=== PATIENT | male | born 1960 | race African-American/Black ===

== ENCOUNTER 2024-12-18 08:58 | Emergency (ER) | payer OTHER, SELFPAY ==
--- NOTE | ~2024-12-18 | CT_ITS ---
EXAMINATION: CTA NECK WITH CONTRAST (STROKE) CTA BRAIN WITH CONTRAST (STROKE) CLINICAL INFORMATION: Dizziness. Leanning to the left side. COMPARISON: None available. TECHNIQUE: CTA of the head and neck was performed in the axial plane from the mediastinum to the skull vertex using 70 mL Omnipaque 350 intravenous contrast. Additional reformatted multiplanar images including maximum intensity projection MIP images are generated on the CT workstation. This CT examination was performed using dose optimization techniques as appropriate, variously including the following: *Automated exposure control *Adjustment of mA and/or kV according to patient size (this includes techniques or standardized protocols for targeted exams where dose is matched to indication/reason for exam; i.e. extremities or head) *Use of iterative reconstruction technique. DLP: 1522 mGy centimeter. FINDINGS: The degree of stenosis determined by criteria similar to NASCET. Brain: Focal encephalomalacia left frontal foote radiata white matter into the left external capsule. The focal old lacunar infarcts, basal ganglia and extracapsular mostly in the left cerebral hemisphere. No acute intracranial hemorrhage, mass effect, midline shift, hydrocephalus or herniation. Bilateral multifocal patchy deep periventricular white matter hypodensity. Posterior cranial fossa contents demonstrated no acute hemorrhage or gross mass effect. Vascular calcifications V4 segments of the vertebral arteries and the cavernous supracavernous segments both ICAs. Tympanic cavities and mastoid cells are aerated. No air-fluid levels in the included paranasal sinuses. Craniocervical junction demonstrates normal position of the cerebellar tonsils. Chest CTA: Calcified plaques in the aortic arch wall and extending into the main branches without focal stenosis or intimal flap. Normal diameter of the aortic arch included in the exam. Neck CTA: Right CCA: Normal patency. No focal stenosis. No intimal flap. Right ICA: Irregular mixed plaque at the proximal segment/carotid bulb representing 80-90% stenosis. No intimal flap. Left CCA: Normal patency. Calcified plaques. No focal stenosis. No intimal flap. Left ICA: Mixed plaques in the proximal segment/carotid bulb representing 70% stenosis. No intimal flap. Normal patency. V1/V2 segments: Normal patency. No focal stenosis. No intimal flap. Codominant vertebral arteries. The origin is directly from the subclavian arteries. Brain CTA: Anterior cerebral circulation: ICAs: Calcified plaques. Normal patency. No focal stenosis. No abrupt cut off. MCA's: Normal patency. No focal stenosis. No abrupt cut off. Bifurcation/trifurcation demonstrated no vascular irregularity. ACAs: Normal patency. No focal stenosis. No abrupt cut off. Anterior communicating artery is small and patent. Ophthalmic arteries are patent without irregularity at the origin. Left posterior communicating artery is robust and patent. Right posterior communicating artery is small and vaguely identified. Posterior cerebral circulation: V3/V4 segments: Calcified plaques. Normal patency. No focal stenosis or intimal flap. Right posterior inferior cerebellar arteries patent. Left posterior inferior cerebellar artery is small and probably with a common trunk with the anterior inferior cerebellar artery. Basilar artery is patent with calcified plaques. No intimal flap. Basilar artery tip is normal. Superior cerebellar arteries are patent. cash on delivery clerk: Small hypoplastic/atrophic left P1 segment. No focal stenosis. No abrupt cut off. Ancillary findings: Main cerebral venous sinuses are patent. Multilevel cervical spondylosis. Bilateral apical lung scarring. CT/CT angio head neck IMPRESSION: Irregular mixed plaques right ICA at representing 80-90% stenosis. Mixed plaques left ICA representing 70% stenosis. No dissection. No main cerebral artery occlusion or embolus. No acute intracranial hemorrhage. Codominant vertebral arteries. Atherosclerosis disease, intracranial. This critical test result is communicated to: Emergency physician court assistant, Lewis Cevallos on December 18, 2024 at 11:23 AM. Electronically signed by: Frandy Byers MD 12/18/2024 11:39 AM EDT
[2024-12-18 09:11] VITALS: BP 125/79; BP 160/90; PULSE 54; PULSE 60; RESP 16; TEMP 36.6; O2SAT 94; O2SAT 95; BMI 30.2
--- NOTE | 2024-12-18 09:31 | ECG_ITS ---
Test Reason : RESOLVED DIZZINESS AND LIGHTHEADEDNESS Blood Pressure : */* mmHG Vent. Rate : 55 BPM Atrial Rate : 55 BPM P-R Int : 110 ms QRS Dur : 84 ms QT Int : 480 ms P-R-T Axes : 44 24 18 degrees QTcB Int : 459 ms Sinus bradycardia with short GA Nonspecific T wave abnormality Abnormal ECG No previous ECGs available Referred By: Lewis Cevallos Electronically Signed By: Modesto Atkinson
--- NOTE | 2024-12-18 09:33 | ED_ITS ---
HPI - General Adult General Chief complaint: Dizziness Stated complaint: lightheaded and weak Time Seen by Provider: 12/18/24 09:15 Source: patient Mode of arrival: ambulatory Limitations: no limitations History of Present Illness ED Provider: Lewis Cevallos HPI narrative: Male history of stroke and hypertension, COPD, and HTn woke up this morning with lightheadedness and dizziness leading to the left which resolved on its own by 07:30. Patient states he woke up between 4:00am-4:30am. Patient denied having any slurred speech, facial droop, or paralysis of extremities. Patient denied having any loss of vision. Patient denied having any ringing in the ears. Patient is presently asymptomatic and feels fine Related Data Allergies Allergy/AdvReac Type Severity Reaction Status Date / Time No Known Allergies Allergy Verified 12/18/24 09:16 Review of Systems 2 Review of Systems: resolved lightheadedness and dizziness Yes all other systems are reviewed and are negative PMFSH Social History Social History Advance Directives: No Advance Directives Information Provided: Yes Physical Exam ED Vital Signs: Vital Signs - 24 hr 12/18/24 09:11 12/18/24 11:45 12/18/24 11:46 Temperature 97.8 F Pulse Rate 54 59 57 Respiratory Rate 16 Blood Pressure 125/79 160/87 H 175/98 H Pulse Oximetry 94 Oxygen Delivery Method Room Air 12/18/24 11:47 12/18/24 12:04 Temperature Pulse Rate 56 56 Respiratory Rate 18 Blood Pressure 185/94 H 185/94 H Pulse Oximetry 95 Oxygen Delivery Method Room Air BMI result Body Mass Index 30.2 Const General: cooperative, healthy appearing, comfortable, no acute distress, well developed, alert, awake and Physically active Orientation/consciousness: patient oriented x3 HENMT Head: Yes normal to inspection, Yes No palpable skull fracture present and Yes normocephalic Ears: hearing grossly normal bilaterally, external ears normal, TM's normal bilaterally, TM normal on the right, TM normal on the left, EAC's normal, mastoids normal and no periauricular adenopathy Eyes General: appearance normal, both eyes and all related structures Neck Neck: Yes normal visual inspection, Yes full ROM, Yes no lymphadenopathy, Yes no meningeal signs, Yes trachea midline, Yes supple, No anterior neck swelling and No tender Chest Chest palpation & inspection: normal inspection of the chest and normal palpation of entire chest wall Resp Effort & Inspection: normal respiratory effort and able to speak in complete sentences Auscultation: clear to auscultation bilaterally Cardio Jugular venous distension: no JVD Heart sounds: S1 normal heart sound present and S2 normal heart sound present GI Inspection: Yes normal to inspection Palpation (GI): Soft to palpation, not firm, nontender, no guarding and not rigid General: Yes no CVA tenderness Back/Spine/Pelvis Back: no CVA tenderness and No back tenderness Skin General skin exam: no rashes or lesions noted, elasticity normal and turgor normal Neuro Other: Negative slurred speech. Negative paralysis of extremities. [id number] and rapid hand movement intact. Negative Romberg. All equal strength 5+ of extremities. Negative facial droop General: patient oriented x3, gait normal, tone normal, moves all extremities, Normal light touch and pain sensation, no meningeal signs, no focal motor deficits, CN's II-XI intact bilaterally and normal sensation to monofilament Extrem General: Yes normal to inspection, Yes full ROM and Yes capillary refill normal Psych Appearance: grossly normal, well kempt and not disheveled NIH Stroke Scale Internal: Initial- Upon Arrival Level of Consciousness: Alert Level of Consciousness Questions: Answers both questions correctly Level of Consciousness Commands: Performs both tasks correctly Best Gaze: Normal Visual: No visual loss Facial Palsy: Normal Motor Arm (Right): No drift Motor Arm (Left): No drift Motor Leg (Right): No drift Motor Leg (Left): No drift Limb Ataxia: Absent Sensory: Normal Best Language: No aphasia Dysarthia: Normal Extinction and Inattention: No abnormality Score: 0 Medications Administered Discontinued Medications Generic Name Dose Route Start Last Admin Trade Name Freq PRN Reason Stop Dose Admin Sodium Chloride 1,000 mls @ 999 mls/hr 12/18/24 09:31 12/18/24 11:42 Ns IV 12/18/24 10:31 Infused .Q1H1M STA Infusion Iohexol 100 ml 12/18/24 10:29 12/18/24 10:29 Iohexol 350 Mg/Ml 100 Ml Infus..Btl IV 12/18/24 10:30 70 ml ONCE ONE Administration Medical Decision Making Medical Decision Making MDM Narrative: 64-year-old male presents to the ED while waking up to dizziness lightheadedness and leaning to the left. States symptoms resolved. Patient patient presently asymptomatic. NIH score is 0. EKG labs orthostatics fluids ordered. Patient denies any URI symptoms or any other symptoms to indicate an infection. Due to history of stroke and patient stated woke up to dizziness and leaning to the left was sent for CTA of head and neck. Patient of the window and symptoms resolved no need to call stroke. 1:22pm: Negative neuro deficits. Patient had normal gait. Not suspecting posterior cerebellar stroke. Orthostatics negative. Two troponins negative. CT head and neck shows bilateral internal carotid artery stenosis between 70- 90%. Patient presently asymptomatic. Case was discussed with Dr. Riggins of vascular surgery he is well informed of patient's history physical exam, and diagnostic results. He states patient could be discharged and follow up with him outpatient. He states make sure patient is on aspirin and statin. I reviewed patient's medication list from [facility] which show he is already on aspirin and a statin. Patient informed to be compliant with these meds. Patient informed to follow up with the vascular surgeon or vascular surgeon at the [facility]. Patient given copy of lab results. Patient explained worrisome signs and informed to return to the ED immediately. Presently not suspecting stroke [place] sepsis, meningitis, bacteremia, or any other concerning symptoms. Differential Diagnosis Differential Diagnoses: The differential diagnosis associated with the presentation includes (Stroke, vertigo) Admission/Observation Consideration of admission/observation: Escalation of care including admission/observation considered Consult Healthcare Provider Management of the patient was discussed with: Advertising Assistant Manager (Vaishnavi. Vascular Surgeon) Lab Data MDM Lab Attestation statement: I reviewed the patient's lab results. 12/18/24 09:51 12/18/24 09:51 Labs: Lab Results 12/18/24 12/18/24 Range/Units 09:51 12:02 WBC 5.6 (4.8-10.8) X10*3/uL RBC 4.90 (4.60-5.80) X10*6/uL Hgb 14.7 (14.0-18.0) g/dl Hct 43.0 (42.0-52.0) % MCV 87.8 (80.0-98.0) fL MCH 30.0 (27.0-33.0) pg MCHC 34.2 (31.0-36.0) g/dl RDW 15.6 (11.0-16.0) % Plt Count 153 L (160-400) X10*3/uL MPV 12.2 (9.4-12.4) fL Immature Gran % (Auto) 0.4 (0.0-0.4) % Neut % (Auto) 48.4 (45-73) % Lymph % (Auto) 37.5 (20-40) % [place] % (Auto) 11.4 H (2-11) % Eos % (Auto) 1.2 (0-4) % Baso % (Auto) 1.1 (0-2) % Lymph # (Auto) 2.1 (1.2-4.9) X10*3/uL [place] # (Auto) 0.6 (0.1-1.2) X10*3/uL Eos # (Auto) 0.1 (0.0-0.4) X10*3/uL Baso # (Auto) 0.1 (0.0-0.2) X10*3/uL Abs Immat Gran (auto) 0.02 (0.00-0.03) X10*3/uL Absolute Neuts (auto) 2.7 (2.0-8.3) x10*3/uL Absolute Nucleated RBC 0.000 (0.0-0.012) X10*3/uL Nucleated RBC % (auto) 0.0 (0.0-0.2) /100WBC PT 10.8 L (10.9-12.4) SEC INR 0.9 (0.9-1.1) APTT 32.8 (26.0-36.8) SEC Sodium 140 (135-145) mmol/L Potassium 3.6 (3.3-5.1) mmol/L Chloride 103 (96-108) mmol/L Carbon Dioxide 31 H (22-29) mmol/L Anion Gap 10 L (12-20) BUN 15 (9-16) mg/dL Creatinine 1.26 (0.5-1.4) mg/dL Estim Creat Clear Calc 67.4 Estimated GFR 58 Random Glucose 86 (60-115) mg/dL Calcium 9.2 (8.4-10.2) mg/dL Magnesium 1.9 (1.6-2.6) mg/dL Total Bilirubin 0.8 (0.0-1.0) mg/dL AST 39 H (5-37) U/L ALT 27 (0-40) U/L Alkaline Phosphatase 64 (39-117) U/L Troponin I High Sens 4.4 5.5 (<3.5-35.0) ng/L Total Protein 7.2 (6.5-8.0) g/dL Albumin 4.0 (3.5-5.0) g/dL Independent Interpretation I performed an independent interpretation of an: CT Scan Radiology Impression Discussion of test interpretation with radiology: I have reviewed the radiologist's reading. Independent Historian Clinical information obtained from an independent historian. History obtained from or confirmed by: Other (patient) Discharge Plan Discharge Clinical Impression: Dizziness, Carotid artery disease Patient Disposition: Home, Self-Care Instructions: Lightheadedness (ED), Dizziness (ED) Additional Instructions: Recommend follow-up with your primary care provider and our vascular surgeon. Your blood work and EKG came back reassuring. Ed CTA head and neck shows bilateral internal carotid artery stenosis that will need further outpatient evaluation. This can contribute to his symptoms of dizziness. Return to the ED immediately for any dizziness, slurred speech, facial droop, paralysis of extremities, nausea, vomiting, loss of vision, fever, chills, or any other concerning symptoms. Recommend being compliant with your aspirin and statin medication. EXAMINATION: CTA NECK WITH CONTRAST (STROKE) CTA BRAIN WITH CONTRAST (STROKE) CLINICAL INFORMATION: Dizziness. Leanning to the left side. COMPARISON: None available. TECHNIQUE: CTA of the head and neck was performed in the axial plane from the mediastinum to the skull vertex using 70 mL Omnipaque 350 intravenous contrast. Additional reformatted multiplanar images including maximum intensity projection MIP images are generated on the CT workstation. This CT examination was performed using dose optimization techniques as appropriate, variously including the following: *Automated exposure control *Adjustment of mA and/or kV according to patient size (this includes techniques or standardized protocols for targeted exams where dose is matched to indication/reason for exam; i.e. extremities or head) *Use of iterative reconstruction technique. DLP: 1522 mGy centimeter. FINDINGS: The degree of stenosis determined by criteria similar to NASCET. Brain: Focal encephalomalacia left frontal foote radiata white matter into the left external capsule. The focal old lacunar infarcts, basal ganglia and extracapsular mostly in the left cerebral hemisphere. No acute intracranial hemorrhage, mass effect, midline shift, hydrocephalus or herniation. Bilateral multifocal patchy deep periventricular white matter hypodensity. Posterior cranial fossa contents demonstrated no acute hemorrhage or gross mass effect. Vascular calcifications V4 segments of the vertebral arteries and the cavernous supracavernous segments both ICAs. Tympanic cavities and mastoid cells are aerated. No air-fluid levels in the included paranasal sinuses. Craniocervical junction demonstrates normal position of the cerebellar tonsils. Chest CTA: Calcified plaques in the aortic arch wall and extending into the main branches without focal stenosis or intimal flap. Normal diameter of the aortic arch included in the exam. Neck CTA: Right CCA: Normal patency. No focal stenosis. No intimal flap. Right ICA: Irregular mixed plaque at the proximal segment/carotid bulb representing 80-90% stenosis. No intimal flap. Left CCA: Normal patency. Calcified plaques. No focal stenosis. No intimal flap. Left ICA: Mixed plaques in the proximal segment/carotid bulb representing 70% stenosis. No intimal flap. Normal patency. V1/V2 segments: Normal patency. No focal stenosis. No intimal flap. Codominant vertebral arteries. The origin is directly from the subclavian arteries. Brain CTA: Anterior cerebral circulation: ICAs: Calcified plaques. Normal patency. No focal stenosis. No abrupt cut off. MCA's: Normal patency. No focal stenosis. No abrupt cut off. Bifurcation/trifurcation demonstrated no vascular irregularity. ACAs: Normal patency. No focal stenosis. No abrupt cut off. Anterior communicating artery is small and patent. Ophthalmic arteries are patent without irregularity at the origin. Left posterior communicating artery is robust and patent. Right posterior communicating artery is small and vaguely identified. Posterior cerebral circulation: V3/V4 segments: Calcified plaques. Normal patency. No focal stenosis or intimal flap. Right posterior inferior cerebellar arteries patent. Left posterior inferior cerebellar artery is small and probably with a common trunk with the anterior inferior cerebellar artery. Basilar artery is patent with calcified plaques. No intimal flap. Basilar artery tip is normal. Superior cerebellar arteries are patent. deicer kit assembler: Small hypoplastic/atrophic left P1 segment. No focal stenosis. No abrupt cut off. Ancillary findings: Main cerebral venous sinuses are patent. Multilevel cervical spondylosis. Bilateral apical lung scarring. CT/CT angio head neck IMPRESSION: Irregular mixed plaques right ICA at representing 80-90% stenosis. Mixed plaques left ICA representing 70% stenosis. No dissection. No main cerebral artery occlusion or embolus. No acute intracranial hemorrhage. Codominant vertebral arteries. Atherosclerosis disease, intracranial. This critical test result is communicated to: Emergency physician certified ophthalmic surgical assistant, Lewis Cevallos on December 18, 2024 at 11:23 AM. Electronically signed by: Frandy Byers MD 12/18/2024 11:39 AM EDT RP Referrals: Maximiliano Riggins MD [Physician, Vascular Surgery] - 2 days Referral Note: Bilateral internal carotid artery stenosis. Resolved dizziness Clinical Impression: Dizziness; Carotid artery disease Stand Alone Forms: Work/School Release Interventions: ED Discharge Assessment Last Done: 12/18/24 13:44 Discharge Date/Time: 12/18/24 13:45 Print Language: Czech
[2024-12-18 09:58] LABS: MANUAL DIFF FLAG NO
[2024-12-18 09:59] LABS: Hematocrit 43.0 % (42.0-52.0); Hemoglobin 14.7 g/dl (14.0-18.0); Imm Gran Abs Auto 0.02 X10*3/uL (0.00-0.03); Imm Gran Pct Auto 0.4 % (0.0-0.4); Lymphocytes Absolute Auto 2.1 X10*3/uL (1.2-4.9); Mean Corpuscular HGB Conc 34.2 g/dl (31.0-36.0); Mean Corpuscular Hemoglobin 30.0 pg (27.0-33.0); Mean Corpuscular Volume 87.8 fL (80.0-98.0); NRBC Abs Auto 0.000 X10*3/uL (0.0-0.012); NRBC Pct Auto 0.0 /100WBC (0.0-0.2); Platelet Count 153 X10*3/uL (160-400); Red Blood Count 4.90 X10*6/uL (4.60-5.80); White Blood Count 5.6 X10*3/uL (4.8-10.8)
[2024-12-18 10:06] LABS: INTERNATIONAL NORM RATIO 0.9 (0.9-1.1); Prothrombin Time 10.8 SEC (10.9-12.4)
[2024-12-18 10:09] LABS: Partial Thromboplastin Time 32.8 SEC (26.0-36.8)
[2024-12-18 10:19] LABS: Alanine Aminotransferase 27 U/L (0-40); Albumin Level 4.0 g/dL (3.5-5.0); Alkaline Phosphatase 64 U/L (39-117); Anion Gap 10 (12-20); Aspartate Amino Transferase 39 U/L (5-37); Blood Urea Nitrogen 15 mg/dL (9-16); Calcium 9.2 mg/dL (8.4-10.2); Carbon Dioxide 31 mmol/L (22-29); Chloride 103 mmol/L (96-108); Creatinine Clr Calc Pharmacy 67.4; Estimated Glomerular Filt Rate 58; Potassium 3.6 mmol/L (3.3-5.1); Sodium 140 mmol/L (135-145); Total Protein 7.2 g/dL (6.5-8.0); Troponin-I High Sensitivity 4.4 ng/L (<3.5-35.0)
[2024-12-18 10:26] LABS: Magnesium 1.9 mg/dL (1.6-2.6)
[2024-12-18] MEDS: iohexoL 350 MG/ML 100 ML INFUS..BTL IV (10:29)
[2024-12-18 11:45] VITALS: BP 160/87; PULSE 59
[2024-12-18 11:46] VITALS: BP 175/98; PULSE 57
[2024-12-18 11:47] VITALS: BP 185/94; PULSE 56
[2024-12-18 12:04] VITALS: BP 185/94; PULSE 56; RESP 18; O2SAT 95
[2024-12-18 12:34] LABS: Troponin-I High Sensitivity 5.5 ng/L (<3.5-35.0)
[2024-12-18 13:44] VITALS: BP 185/94; PULSE 56; RESP 18; TEMP 36.6; O2SAT 95
== END 2024-12-18 13:45 | disposition home or self-care (01) ==
PROVIDERS: Physician Assistant; Emergency Provider Emergency Medicine
DX: R42 Dizziness and giddiness (principal); I77.9 Disorder of arteries and arterioles, unspecified; R29.700 NIHSS score 0; F17.210 Nicotine dependence, cigarettes, uncomplicated
CPT/HCPCS: 36415; 70496; 70498; 80053; 83735; 84484; 85025; 85610; 85730; 93005; 96360; 99284; Q9967

== ENCOUNTER → 2024-12-18 09:31 | Outpatient (BNV) | payer OTHER, SELFPAY | PROVIDERS: Emergency Provider Emergency Medicine; Visit Provider Internal Medicine Cardiovascular Disease | DX: R00.1 Bradycardia, unspecified (principal) | CPT/HCPCS: 93010 ==

== ENCOUNTER → 2024-12-18 09:43 | Outpatient (BNV) | payer OTHER, SELFPAY | PROVIDERS: Emergency Provider Emergency Medicine; Visit Provider Radiology Diagnostic Radiology | DX: R42 Dizziness and giddiness (principal) | CPT/HCPCS: 70496; 70498 ==

== ENCOUNTER 2024-12-24 10:03 | Outpatient (AMB) | payer OTHER, SELFPAY ==
[2024-12-24 10:06] VITALS: BP 128/84; BMI 29.5
--- NOTE | 2024-12-24 10:06 | A.OFFVIS_ITS ---
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 Pt states he still gets lightheaded and dizziness at times where the room is spinning. 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 He experienced dizziness and lightheadedness, leading to an emergency room visit on 12/18, without slurred speech or limb weakness. A CT scan identified significant carotid artery stenosis, more severe on the right side. The patient has a history of a stroke in 2021, initially presenting with balance issues, and delayed medical attention for three days. He was treated at outside hospital in [facility]. 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 The patient smokes one pack of cigarettes daily, denies diabetes, and is on a cholesterol-lowering medication and baby aspirin. He now presents for vascular evaluation [facility] Medical History (Updated 12/24/24 @ 12:34 by Maximiliano Riggins MD) Stroke COPD (chronic obstructive pulmonary disease) Hypertension Social History (Updated 12/24/24 @ 10:09 by ZORAIDA Bolivar) Patient Tobacco Use Status: Current everyday Tobacco user Cigarettes Per Day: 20 Review of Systems Const All systems reviewed & are unremarkable except as noted in HPI and below Reports no additional complaints ENT Reports Normal hearing present Card Denies chest pain, Denies chest pain at rest, Denies chest pain with activity and Denies pedal edema Resp Denies cough GI Denies abdominal pain Musc Denies abnormal gait, Denies muscle cramps and Denies radiating pain into limb Skin/Breast Denies skin ulcer and Denies wounds Neuro Reports Normal hearing present and Denies abnormal gait Psych Reports no additional complaints Physical Exam Vital Signs: Last Vital Signs BP 120/90 H 12/24/24 10:13 BMI result Body Mass Index 29.5 Const General: cooperative, healthy appearing and comfortable Orientation/consciousness: oriented to person, oriented to place and oriented to time HEENT Head: Yes normal to inspection Neck Neck: Yes normal visual inspection Carotids: no bruits Chest Chest palpation & inspection: normal inspection of the chest Resp Effort & Inspection: normal respiratory effort and able to speak in complete sentences Auscultation: clear to auscultation bilaterally, no crackles, no rales, no rhonchi and no wheezes Cardio Rate: regular rate Rhythm: regular rhythm Heart sounds: S1 normal heart sound present and S2 normal heart sound present Bruits: no carotid bruits Peripheral pulses: Peripheral pulses 2+ throughout GI Inspection: Yes normal to inspection Skin Wounds: no wounds Hair: normal Neuro General: oriented to person, oriented to place and oriented to time Cranial nerves: Yes CN's II-XII intact bilaterally and Yes Normal hearing present Cognition (Neuro): normal cognition Motor exam (neuro): 5/5 motor strength present throughout Extrem Other: venous exam: No significant superficial varicosities or spider telangiectasias, minimal edema General: No clubbing, No cyanosis and No edema Psych Appearance: grossly normal Mental Status: mental status grossly normal Speech and movement: Normal speech and movement present Results Reviewed Results Reviewed: CT angiogram dated 12/18/2024 demonstrates right-sided carotid stenosis of 80-90% left-sided carotid stenosis of 70%. Written report and images were reviewed. Assessment & Plan Assessment & Plan (1) Bilateral carotid artery stenosis: Code(s): I65.23 - Occlusion and stenosis of bilateral carotid arteries Category: Medical Plan: In short patient has high-grade right carotid stenosis. We have reviewed signs and symptoms of a stroke. We also discussed risk factor modification inclusive a healthy diet low in cholesterol. The patient will require right carotid endarterectomy. Risks benefits complications of the surgery included but not limited to bleeding infection stroke and were discussed in detail with the patient. He agreed and would like to move forward. He will require cardiac risk stratification prior to surgery. Thank you for allowing us to participate in this patient's care. If there are any questions or concerns please do not hesitate to contact us. Plan Patient was informed and verbally consented to the use of an ambient scribe for clinic note documentation during this visit. Patient Instructions: - Attend the cardiology consult to ensure heart health before surgery. - Prepare for surgery scheduled in early February. - Avoid heavy lifting and driving for two weeks after surgery. - Monitor for any signs of stroke and seek immediate medical attention if symptoms occur. Coding Level of Care Code New Pt Level 4 (94123) Complex EM visit Add On G2211 Diagnoses Bilateral carotid artery stenosis I65.23
[2024-12-24 10:13] VITALS: BP 120/90
== END 2024-12-24 10:47 | disposition home or self-care (01) ==
LOC: HO.HVS 10:03
PROVIDERS: Referring Provider Surgery Vascular Surgery; Visit Provider Surgery Vascular Surgery
DX: I65.23 Occlusion and stenosis of bilateral carotid arteries (principal)
CPT/HCPCS: 99204; G2211

== ENCOUNTER → 2024-12-24 10:03 | Outpatient (BNVA) | payer OTHER, SELFPAY | PROVIDERS: Visit Provider Surgery Vascular Surgery | DX: I65.23 Occlusion and stenosis of bilateral carotid arteries (principal) | CPT/HCPCS: 99202 ==

== ENCOUNTER 2025-01-05 17:41 | Emergency (ER) | payer OTHER, SELFPAY ==
[2025-01-05 17:41] VITALS: PULSE 82; O2SAT 97; BMI 29.5
--- NOTE | 2025-01-05 18:32 | ECG_ITS ---
Test Reason : OVER 50 Blood Pressure : */* mmHG Vent. Rate : 54 BPM Atrial Rate : 54 BPM P-R Int : 122 ms QRS Dur : 88 ms QT Int : 474 ms P-R-T Axes : 56 20 24 degrees QTcB Int : 449 ms Sinus bradycardia Otherwise normal ECG When compared with ECG of 18-Dec-2024 09:49, ST elevation now present in Anterior leads Nonspecific T wave abnormality no longer evident in Lateral leads Referred By: Tae Shoemaker Electronically Signed By: TIANNA WAYNE MD
--- NOTE | 2025-01-05 18:58 | ED.MEDCLEAR ---
HPI - Medical Clearance General Chief complaint: Medical Clearance Stated complaint: Section 12 Time Seen by Provider: 01/05/25 17:58 Source: patient, RN notes reviewed and old records reviewed Mode of arrival: EMS Limitations: no limitations History of Present Illness ED Provider: Navid OCONNOR Narrative: 64-year-old male past medical history significant for hypertension, COPD, hyperlipidemia, previous TBI presents for evaluation of suicidal ideation. Patient had a mental health evaluation at the [facility] today and he admitted that he was having depressive and suicidal thoughts with plan to overdose on his medications. The patient also reports that he drank alcohol and snorted cocaine last night in an attempt to harm himself because ?I heard that is bad when you have artery stenosis. ? The patient was seen at this facility on 12/18/2024 for acute onset of dizziness. He was found to have up to 90% stenosis of the right internal carotid artery. The patient follow up with Dr. Riggins and has plans for outpatient carotid endarterectomy Apparently the patient is supposed to see Cardiology, Dr. Porter at this facility for clearance for surgery and the endarterectomy tomorrow and will not be able to make that appointment due to being placed on a section 12. The patient has no active medical complaints. Denies any dizziness and states he has not had any dizziness since his visit here on 12/18/2024. Denies any chest pain pain He has occasional headaches due to his previous TBI but denies any active headaches today. Related Information Home Medications ?Medication ?Instructions ?Recorded ?Confirmed albuterol 90 mcg/actuation aerosol mcg inhalation 01/06/25 inhaler amlodipine 5 mg tablet 5 mg PO DAILY 01/06/25 01/06/25 aspirin 81 mg tablet 81 mg PO DAILY 01/06/25 01/06/25 atorvastatin 20 mg tablet 20 mg PO BEDTIME 01/06/25 01/06/25 carboxymethylcellulose sodium 1 % 1 drp ophthalmic (eye) BID 01/06/25 01/06/25 eye liquid gel drops cholecalciferol (vitamin D3) 50 50 mcg PO DAILY 01/06/25 01/06/25 mcg (2,000 unit) capsule cyanocobalamin (vitamin B-12) 250 250 mcg PO DAILY 01/06/25 01/06/25 mcg tablet doxepin 6 mg tablet 6 mg PO BEDTIME PRN Insomnia 01/06/25 01/06/25 hydroxyzine HCl 25 mg tablet 25 mg PO BID PRN Anxiety 01/06/25 01/06/25 ibuprofen 800 mg tablet 800 mg PO Q8H PRN Headache 01/06/25 01/06/25 lanolin alcohols-mineral See Rx Instructions .Route 01/06/25 01/06/25 oil-w.petrolatum-ceresin topical .COMPLEX PRN Dry Skin cream (Eucerin topical cream) lisinopril 10 1 tab PO DAILY 01/06/25 01/06/25 mg-hydrochlorothiazide 12.5 mg tablet multivitamin 1 tab PO DAILY 01/06/25 01/06/25 mupirocin 2 % topical ointment 1 appl topical BID 01/06/25 01/06/25 sertraline 200 mg capsule 200 mg PO DAILY 01/06/25 01/06/25 thiamine HCl (vitamin B1) 100 mg 100 mg PO DAILY 01/06/25 01/06/25 tablet tiotropium 2.5 mcg-olodaterol 2.5 2 puff inhalation DAILY 01/06/25 01/06/25 mcg/actuation mist for inhalation Allergies Allergy/AdvReac Type Severity Reaction Status Date / Time No Known Allergies Allergy Verified 01/05/25 17:50 Review of Systems Constitutional: Constitutional: Denies body ache(s), Denies chills, Denies fever(s) and Denies headache(s) Eyes: Eyes: Denies blurry vision ENT: Denies vertigo, Denies dizziness and Denies headache(s) Cardiovascular: Cardiovascular: Denies chest pain and Denies dyspnea on exertion Respiratory: Respiratory: Denies cough and Denies dyspnea on exertion Gastrointestinal: Gastrointestinal: Denies abdominal pain, Denies nausea and Denies vomiting Musculoskeletal: Musculoskeletal: Denies back pain Integumentary/Breasts: Skin/Breast: Denies rash Neurologic: Denies vertigo, Denies dizziness and Denies headache(s) Psychiatric: Psychiatric: Denies anxiety, Reports depression, Denies homicidal ideation and Reports suicidal ideation [facility] Past Medical History Medical History (Updated 01/06/25 @ 12:14 by Quinn Blue DO) Stroke COPD (chronic obstructive pulmonary disease) Hypertension Social History Social History (Updated 12/24/24 @ 10:09 by Jennifer L Swan, RMA) Unable to assess alcohol history related to: Refusing to respond Patient Tobacco Use Status: Current everyday Tobacco user Cigarettes Per Day: 20 Smoked in Last 30 Days: No Use of substances other than those prescribed or required for medical reasons: Refusing to respond Substance Use Frequency Other:: all the drugs Advance Directives: No Advance Directives Information Provided: Yes Do you have a plan to hurt others: No Plan Physical Exam Vital Signs: Vital Signs: Last Vital Signs Temp 97.4 F 01/06/25 10:39 Pulse 72 01/06/25 10:39 Resp 14 01/06/25 10:39 BP 140/99 H 01/06/25 10:39 Pulse Ox 97 01/06/25 10:39 O2 Del Method Room Air 01/06/25 10:39 BMI result Body Mass Index 29.5 Const: General: healthy appearing, comfortable, no acute distress, alert and awake Nutritional Appearance: well nourished Orientation/consciousness: patient oriented x3 HEENT: Head: Yes normocephalic and Yes atraumatic Eyes: Eyelids: Yes eyelids normal Conjunctivae: conjunctivae normal Sclerae: sclerae normal Corneas: corneas normal Pupils: Equal, round and reactive pupils present EOM: EOMs intact bilaterally Neck: Neck: Yes full ROM Resp: Effort & Inspection: normal respiratory effort, able to speak in complete sentences and not labored Cardio: Rate: regular rate Rhythm: regular rhythm GI: Inspection: No distended Palpation (GI): Soft to palpation, not firm, nontender, no guarding and not rigid Skin: General skin exam: elasticity normal Neuro: General: patient oriented x3 Cranial nerves: Yes Equal, round and reactive pupils present and Yes Bilaterally intact EOM present Cognition (Neuro): normal cognition Course Reevaluation(s) Reevaluation #1: Patient will be discharged to [facility] Time: 12:11 Date: 01/06/25 Provider: Quinn Blue DO Physician observation ended. Time: 12:11 Medical Decision Making Medical Decision Making MDM Narrative: 64-year-old male with past medical history as above presents for evaluation of depression with suicidal ideation. [facility] to suicidal ideation. The patient reports he tried to harm himself last night by drinking alcohol and using cocaine. The patient has no headaches, no dizziness, no chest pain, no somatic complaints at all today. He was due to have a cardiology appointment tomorrow for clearance to have the endarterectomy. Unfortunately the patient admits to using cocaine and will likely need detox prior to undergoing any surgery. I did message the patient's surgeon, Dr. Riggins who reports it is okay for the patient to go to a mental health facility and address his depression and suicidal ideation prior to his endarterectomy. I also sent a message to the patient's fiscal accountant and informed him that the patient will be in the department and will likely misses appointment tomorrow. Plan for basic medical labs, the patient can be medically cleared for a psych facility admission without seeing Cardiology to be cleared for an endarterectomy Differential Diagnosis Differential Diagnoses: The differential diagnosis associated with the presentation includes Depression Anxiety Suicidal ideation Substance abuse Admission/Observation Consideration of admission/observation: Escalation of care including admission/observation considered Lab Data 01/05/25 20:25 01/05/25 20:25 Labs: Lab Results 01/05/25 01/05/25 01/06/25 Range/Units 20:24 20:25 05:35 WBC 7.4 (4.8-10.8) X10*3/uL RBC 4.70 (4.60-5.80) X10*6/uL Hgb 14.3 (14.0-18.0) g/dl Hct 41.7 L (42.0-52.0) % MCV 88.7 (80.0-98.0) fL MCH 30.4 (27.0-33.0) pg MCHC 34.3 (31.0-36.0) g/dl RDW 15.8 (11.0-16.0) % Plt Count 153 L (160-400) X10*3/uL MPV 12.3 (9.4-12.4) fL Immature Gran % (Auto) 0.1 (0.0-0.4) % Neut % (Auto) 48.4 (45-73) % Lymph % (Auto) 38.8 (20-40) % [place] % (Auto) 10.4 (2-11) % Eos % (Auto) 1.5 (0-4) % Baso % (Auto) 0.8 (0-2) % Lymph # (Auto) 2.9 (1.2-4.9) X10*3/uL [place] # (Auto) 0.8 (0.1-1.2) X10*3/uL Eos # (Auto) 0.1 (0.0-0.4) X10*3/uL Baso # (Auto) 0.1 (0.0-0.2) X10*3/uL Abs Immat Gran (auto) 0.01 (0.00-0.03) X10*3/uL Absolute Neuts (auto) 3.6 (2.0-8.3) x10*3/uL Absolute Nucleated RBC 0.000 (0.0-0.012) X10*3/uL Nucleated RBC % (auto) 0.0 (0.0-0.2) /100WBC Sodium 142 (135-145) mmol/L Potassium 3.9 (3.3-5.1) mmol/L Chloride 103 (96-108) mmol/L Carbon Dioxide 32 H (22-29) mmol/L Anion Gap 11 L (12-20) BUN 14 (9-16) mg/dL Creatinine 1.06 (0.5-1.4) mg/dL Estim Creat Clear Calc 79.4 Estimated GFR > 60 Random Glucose 80 (60-115) mg/dL Calcium 8.8 (8.4-10.2) mg/dL Total Bilirubin 1.0 (0.0-1.0) mg/dL AST 34 (5-37) U/L ALT 22 (0-40) U/L Alkaline Phosphatase 53 (39-117) U/L Total Protein 7.2 (6.5-8.0) g/dL Albumin 4.0 (3.5-5.0) g/dL Urine Color Yellow Urine Appearance Clear Urine pH 7.0 (5.0-9.0) Ur Specific [place] 1.020 (1.005-1.025) Urine Protein Negative (Neg-Trace) mg/dL Urine Glucose (UA) Negative (Negative) mg/dL Urine Ketones Negative (Negative) mg/dL Urine Blood Negative (Negative) Urine Nitrite Negative (Negative) Ur Leukocyte Esterase Trace H (Negative) Urine RBC 0-2 (0-2) /HPF Urine WBC 0-5 (0-5) /HPF Ur Squamous Epith Cells 0-2 (0-2) /HPF Urine Bacteria None Seen (None Seen) Hyaline Casts 0-2 (0-2) /LPF Salicylates < 5.0 L (15-30) mg/dL Urine Opiates Screen Not Detected (Not Detect) Ur Buprenorphine Scrn Not Detected (Not Detect) ng/mL Ur Oxycodone Screen Not Detected (Not Detect) ng/mL Urine Methadone Screen Not Detected (Not Detect) ng/mL Urine Fentanyl Screen Not Detected (Not Detect) Acetaminophen < 3 (<30) mcg/mL Ur Barbiturates Screen Not Detected (Not Detect) Ur Phencyclidine Scrn Not Detected (Not Detect) Ur Amphetamines Screen Not Detected (Not Detect) U Benzodiazepines Scrn Not Detected (Not Detect) Urine Cocaine Screen POSITIVE H (Not Detect) U Marijuana (THC) Screen Not Detected (Not Detect) Ethyl Alcohol < 10 mg/dL Discharge Plan Discharge Clinical Impression: Depression, Cocaine abuse Patient Disposition: Xfer Psychiatric Hosp Prescriptions: No Action thiamine HCl (vitamin B1) 100 mg Tablet 100 mg PO DAILY doxepin 6 mg Tablet 6 mg PO BEDTIME PRN (Reason: Insomnia) tiotropium-olodaterol 2.5-2.5 mcg/actuation Mist 2 puff INHALATION DAILY sertraline 200 mg Capsule 200 mg PO DAILY hydroxyzine HCl 25 mg Tablet 25 mg PO BID PRN (Reason: Anxiety) mupirocin 2 % Ointment 1 appl TOPICAL BID Eucerin Cream See Rx Instructions .ROUTE .COMPLEX PRN (Reason: Dry Skin ) Rx Instructions: Apply moderate amount topically TID PRN for Dry skin multivitamin Tablet 1 tab PO DAILY atorvastatin 20 mg Tablet 20 mg PO BEDTIME cyanocobalamin (vitamin B-12) 250 mcg Tablet 250 mcg PO DAILY amlodipine 5 mg Tablet 5 mg PO DAILY aspirin 81 mg Tablet 81 mg PO DAILY albuterol 90 mcg/actuation Aerosol INHALATION lisinopril-hydrochlorothiazide 10-12.5 mg Tablet 1 tab PO DAILY carboxymethylcellulose sodium 1 % Drops, Liquid Gel 1 drp OPHTHALMIC (EYE) BID cholecalciferol (vitamin D3) 50 mcg (2,000 unit) Capsule 50 mcg PO DAILY ibuprofen 800 mg Tablet 800 mg PO Q8H PRN (Reason: Headache) Print Language: Serbian
[2025-01-05 20:29] LABS: MANUAL DIFF FLAG NO
[2025-01-05 20:30] LABS: Hematocrit 41.7 % (42.0-52.0); Hemoglobin 14.3 g/dl (14.0-18.0); Imm Gran Abs Auto 0.01 X10*3/uL (0.00-0.03); Imm Gran Pct Auto 0.1 % (0.0-0.4); Lymphocytes Absolute Auto 2.9 X10*3/uL (1.2-4.9); Mean Corpuscular HGB Conc 34.3 g/dl (31.0-36.0); Mean Corpuscular Hemoglobin 30.4 pg (27.0-33.0); Mean Corpuscular Volume 88.7 fL (80.0-98.0); NRBC Abs Auto 0.000 X10*3/uL (0.0-0.012); NRBC Pct Auto 0.0 /100WBC (0.0-0.2); Platelet Count 153 X10*3/uL (160-400); Red Blood Count 4.70 X10*6/uL (4.60-5.80); White Blood Count 7.4 X10*3/uL (4.8-10.8)
[2025-01-05 20:44] LABS: Acetaminophen LAB < 3 mcg/mL (<30); Salicylate < 5.0 mg/dL (15-30)
[2025-01-05 20:44] LABS: Alanine Aminotransferase 22 U/L (0-40); Albumin Level 4.0 g/dL (3.5-5.0); Alkaline Phosphatase 53 U/L (39-117); Anion Gap 11 (12-20); Aspartate Amino Transferase 34 U/L (5-37); Blood Urea Nitrogen 14 mg/dL (9-16); Calcium 8.8 mg/dL (8.4-10.2); Carbon Dioxide 32 mmol/L (22-29); Chloride 103 mmol/L (96-108); Creatinine Clr Calc Pharmacy 79.4; Estimated Glomerular Filt Rate > 60; Potassium 3.9 mmol/L (3.3-5.1); Sodium 142 mmol/L (135-145); Total Protein 7.2 g/dL (6.5-8.0)
--- NOTE | 2025-01-06 00:09 | PC.NURSE ---
Assumed care of pt at 2315. Report rec'd from RODDY Means.
[2025-01-06 00:15] VITALS: BP 155/88; PULSE 61; RESP 18; TEMP 37; O2SAT 96
[2025-01-06 05:44] LABS: Appearance Urine Clear; Glucose Urine UA Negative (Negative); PH 7.0 (5.0-9.0); Specific Gravity - Urine 1.020 (1.005-1.025); UMIC TRIGGER UA YES
--- NOTE | 2025-01-06 05:44 | PC.NURSE ---
PT presented to ED at 1741. Unsure as to when PT was officially medically cleared, and when he was changed over. tw assumed care at 2315 and pt was already changed over. patient belongings not completed. TW found labelled belonging in [place] port. Current shift Secuirty guards reports supervisor policy change clerks not being done during their shift. Completed Patient belonging based on what was found in bag.
[2025-01-06 05:53] LABS: Cannabinoid Screen Urine Not Detected (Not Detect)
--- NOTE | 2025-01-06 06:01 | PC.NURSE ---
Assumed care of pt at approximately 0530, pt escorted to br by SABRINA Walters and able to give urine sample. Pt back to room. Received report from Rama PEREYRA. Belongings list being completed by Rama, not done when pt arrived by previous RN or tech. At this time Rama found belongings in [place]. Wallet with $85( 4-$20, 1-$5 bill) and cell phone with clothes and shoes. [facility].
--- NOTE | 2025-01-06 07:08 | PC.NURSE ---
Assumed care of patient at 0645, patient appears to be in no apparent distress at this time, sleeping, respirations even and unlabored. Continue plan of care for IPLOC
--- NOTE | 2025-01-06 08:20 | MHC.CARE ---
Dee, [facility] worker [facility] called to inquire about Pt. She was informed admissions would be looking for [facility] Pt at this time. Her phone number is [phone] if there are any questions.
[2025-01-06 10:39] VITALS: BP 140/99; PULSE 72; RESP 14; TEMP 36.3; O2SAT 97
--- NOTE | 2025-01-06 15:17 | PHA.MEDREC ---
Addendum entered by Shayy Krishnamurthy priti 01/06/25 15:28: reviewed Original Note: Pharmacy Consult ? Medication Reconciliation Pharmacy reviewed med rec done by nursing. Utilized med list from [facility].
[2025-01-06 15:20] VITALS: BP 140/99; PULSE 72; RESP 14; TEMP 36.3; O2SAT 97
== END 2025-01-06 15:21 ==
PROVIDERS: Physician Assistant; Emergency Provider Internal Medicine
DX: F32.A Depression, unspecified (principal); F14.10 Cocaine abuse, uncomplicated; R45.851 Suicidal ideations; I65.21 Occlusion and stenosis of right carotid artery; Z87.820 Personal history of traumatic brain injury; Z79.82 Long term (current) use of aspirin; Z79.899 Other long term (current) drug therapy
CPT/HCPCS: 36415; 80053; 80143; 80179; 80307; 81001; 85025; 93005; 99285; S9485

== ENCOUNTER → 2025-01-05 18:32 | Outpatient (BNV) | payer OTHER, SELFPAY | PROVIDERS: Emergency Provider Internal Medicine; Visit Provider Internal Medicine Cardiovascular Disease | DX: R00.1 Bradycardia, unspecified (principal) | CPT/HCPCS: 93010 ==

== ENCOUNTER 2025-01-27 12:35 | Outpatient (AMB) | payer OTHER, SELFPAY ==
[2025-01-27 13:18] VITALS: BP 148/60; PULSE 69; BMI 29.6
--- NOTE | 2025-01-27 13:18 | MHC.OFFVIS ---
Vital Signs 01/27/25 13:18 Height 5 ft 9 in Weight 200 lb 9.93 oz BMI 29.6 BP 148/60 H Blood Pressure Location Lt brachial Position Sitting Pulse 69 Pulse Source Pulse Oximeter Intake Visit Reasons: Preop/ Vaishnavi/ endarterectomy Allergies No Known Allergies Allergy (Verified 01/05/25 17:50) Medication List - Last Reconciled 01/27/25 by Michael Porter MD albuterol sulfate 90 mcg/actuation 1 inh inhalation TID PRN amlodipine 5 mg PO DAILY aspirin 81 mg PO DAILY atorvastatin 20 mg PO BEDTIME carboxymethylcellulose sodium 1% 1 drp ophthalmic (eye) BID cholecalciferol (vitamin D3) 50 mcg PO DAILY cyanocobalamin (vitamin B-12) 250 mcg PO DAILY doxepin 6 mg PO BEDTIME PRN hydroxyzine HCl 25 mg PO BID PRN ibuprofen 800 mg PO Q8H PRN lanolin puzguwq-ee-g.pet-ceres (Eucerin topical cream) 1 appl topical TID PRN multivitamin 1 tab PO DAILY mupirocin 2% 1 appl topical BID sertraline 200 mg PO DAILY thiamine HCl (vitamin B1) 100 mg PO DAILY tiotropium-olodaterol 2.5-2.5 mcg/actuation 2 puffs inhalation DAILY HPI Comments Details: Bhaskar is here for consultation regarding preoperative risk stratification for carotid endarterectomy. Per vascular note, he had an ER visit for dizziness. In that context, it seems that he had a CAT scan showing significant carotid stenosis, more so on the right side. Otherwise, he has had a stroke in 2021, treated at an outside hospital. Otherwise, smoker, has hypertension and dyslipidemia. Recent ER visit for suicidal ideation and at that time, he was also cocaine positive. He denies any cardiac issues in the past like coronary disease or myocardial infarction or cardiomyopathy. Within limits of his activity, does not have any clear-cut symptoms like angina. [facility] Medical History (Updated 01/27/25 @ 13:38 by Michael Porter MD) Stroke COPD (chronic obstructive pulmonary disease) Hypertension Family History (Updated 01/27/25 @ 13:22 by Taryn Robertson) Mother No problems noted. Father No problems noted. Social History (Updated 01/27/25 @ 13:22 by Taryn Robertson) Unable to assess alcohol history related to: Refusing to respond Alcohol intake: never Patient Tobacco Use Status: Current everyday Tobacco user Cigarettes Per Day: 20 Review of Systems Const Denies weakness ENT Denies dizziness Card Denies chest pain, Denies chest pain with activity, Denies syncope, Denies rapid heart rate, Denies pedal edema, Denies edema, Denies leg edema, Denies lightheadedness, Denies palpitations, Denies dyspnea, Denies dyspnea on exertion and Denies orthopnea Resp Denies cough, Denies dyspnea and Denies dyspnea on exertion GI Denies hematochezia and Denies change in stool character Musc Denies abnormal gait, Denies muscle cramps, Denies muscle weakness, Denies numbness, Denies radiating pain into limb and Denies tingling Neuro Denies abnormal gait, Denies dizziness, Denies syncope, Denies numbness, Denies tingling and Denies weakness Endo Denies palpitations Physical Exam Vital Signs: Last Vital Signs Pulse 69 01/27/25 13:18 BP 148/60 H 01/27/25 13:18 BMI result Body Mass Index 29.6 Const General: comfortable and no acute distress Orientation/consciousness: patient oriented x3 HEENT Other: Unremarkable Head: Yes normal to inspection Neck Neck: Yes normal visual inspection Chest Chest palpation & inspection: normal inspection of the chest Resp Auscultation: clear to auscultation bilaterally Cardio Palpation: normal PMI Heart sounds: S1 normal heart sound present, S2 normal heart sound present, no gallops, no murmurs and no rubs GI Palpation (GI): Soft to palpation Back/Spine/Pelvis Other: unremarkable Skin General skin exam: no rashes or lesions noted Neuro General: patient oriented x3 Extrem General: Yes normal to inspection Psych Mental Status: mental status grossly normal Assessment & Plan Assessment & Plan (1) Preoperative cardiovascular examination: Code(s): Z01.810 - Encounter for preprocedural cardiovascular examination Category: Medical (2) Bilateral carotid artery stenosis: Code(s): I65.23 - Occlusion and stenosis of bilateral carotid arteries Category: Medical (3) Cocaine abuse: Code(s): F14.10 - Cocaine abuse, uncomplicated Category: Medical (4) Hypertension: Code(s): I10 - Essential (primary) hypertension Category: Medical (5) Hyperlipidemia, unspecified: Code(s): E78.5 - Hyperlipidemia, unspecified Category: Medical Plan In the recent EKG, sinus cardiac 54/Min; no clear ischemic changes; normal ME and corrected QT. in the one prior to that, nonspecific ST-T changes. Available high sensitivity troponins are unremarkable. Neck CTA shows right internal carotid artery 80-90% stenosis. Left internal carotid artery 70% stenosis. Intracranial atherosclerotic disease. Overall, multiple risk factors, carotid stenosis, requiring endarterectomy. Counseled about cocaine and he denies any further use in advised to abstain. He also had a recent ER visit for suicidal ideation but he now states he is mentally more stable. We will obtain an echocardiogram and exercise stress perfusion imaging study. Addendum to be made after review of the above. Orders: Orders CA stress test Today I65.23 - Occlusion and stenosis of bilateral carotid arteries, Z01.810 - Encounter for preprocedural cardiovascular examination CA echo transthoracic complete Today I65.23 - Occlusion and stenosis of bilateral carotid arteries, Z01.810 - Encounter for preprocedural cardiovascular examination NM cardiolite stress test Today I65.23 - Occlusion and stenosis of bilateral carotid arteries, Z01.810 - Encounter for preprocedural cardiovascular examination Coding Level of Care Code New Pt Level 4 (33711) Complex EM visit Add On G2211 Diagnoses Preoperative cardiovascular examination Z01.810 Bilateral carotid artery stenosis I65.23 Cocaine abuse F14.10 Hypertension I10 Hyperlipidemia, unspecified E78.5
== END 2025-01-27 13:34 | disposition home or self-care (01) ==
PROVIDERS: Visit Provider Internal Medicine
DX: Z01.810 Encounter for preprocedural cardiovascular examination (principal); I65.23 Occlusion and stenosis of bilateral carotid arteries; F14.10 Cocaine abuse, uncomplicated; I10 Essential (primary) hypertension; E78.5 Hyperlipidemia, unspecified
CPT/HCPCS: 99204; G2211

== ENCOUNTER → 2025-01-27 12:35 | Outpatient (BNVA) | payer OTHER, SELFPAY | PROVIDERS: Visit Provider Internal Medicine | DX: Z01.810 Encounter for preprocedural cardiovascular examination (principal); I65.23 Occlusion and stenosis of bilateral carotid arteries; F14.10 Cocaine abuse, uncomplicated; I10 Essential (primary) hypertension; E78.5 Hyperlipidemia, unspecified | CPT/HCPCS: 99202 ==

== ENCOUNTER → 2025-02-02 12:47 | Outpatient (REF) | payer OTHER, SELFPAY ==
--- NOTE | 2025-02-02 12:54 | CA_ITS ---
Transthoracic Echocardiogram Patient (Last, First, Middle): Bhaskar Herron Lee Gender: Male Date of : 1960 Age: 65 Procedure Date: 02/02/2025 Procedure Type: Transthoracic Echocardiogram Location: OP Height: 175.26 cm Weight: 90.72 kg BSA: 2.07 m2 Heart Rate: bpm BP: 148 / 60 mmHg Batter Depositor: NIDIA Referring MD: Michael Porter MD Symptoms: Z01.810 - Encounter for preprocedural cardiovascular examination Study Quality: Fair ECG Rhythm: Sinus Conclusions: - The left ventricular systolic function is normal. The calculated ejection fraction is 60% by biplane method. - The basal inferior and basal inferoseptal segments are akinetic. - No obvious valvular pathology seen on this study. Findings Left Ventricle Normal left ventricular cavity size. There is mildly increased left ventricular wall thickness. The left ventricular systolic function is normal. The calculated ejection fraction is 60% by biplane method. There is no evidence of regional wall motion abnormalities. Diastolic function is normal for age. Wall Motion Rest Echo Findings The basal inferior and basal inferoseptal segments are akinetic. Right Ventricle Normal right ventricular cavity size and systolic function. Atria Both atria are normal in size. Aortic Valve There is a normal trileaflet aortic valve. There is no aortic valve stenosis. There is no aortic valve regurgitation. Mitral Valve The mitral valve appears normal. There is no mitral valve regurgitation. There is no mitral valve stenosis. Pulmonic Valve The pulmonic valve is likely normal. Tricuspid Valve There is trace tricuspid valve regurgitation. There is no evidence of pulmonary hypertension. Great Vessels The asc aorta and aortic arch are normal in size. Small plaque is seen in the sino tubular ridge. Venous The inferior vena cava is normal in size and collapses greater than 50% with inspiration. Pericardium/Pleural There is no evidence of pericardial effusion. Prior Study Comparison No prior study available for comparison. Recommendations, Care & Conclusions No obvious valvular pathology seen on this study. Measurements 2D Linear Measurements IVSd: 1.18 0.6-0.9/0.6-1.0 cm LVIDd: 5.11 3.9-5.3/4.2-5.9 cm LVIDd Index: 2.47 2.4-3.2/2.2-3.1 cm/m2 LVIDs: 3.31 2.0-3.6 cm LVPWd: 1.03 0.7-1.1 cm LA Diam: 4.00 2.7-3.8/3.0-4.0 cm LAIDs Index: 1.93 1.5-2.3 cm/m2 LV Mass: 269.14 67-162/88-224 g LV Mass Index: 130.02 43-95/49-115 g/m2 LVOT Diam: 2.30 3.0+(-)1.3 cm 2D Systolic Function EF 4C: 52.80 >55% EF 2C: 62.30 >55% EF BiP: 59.70 >55% Mitral Valve MV Pk E: 0.75 MV PK A: 0.82 MV Decel Time: 151.00 E/A: 0.90 E'Lateral: 6.74 E'Medial: 7.18 E/E' Med: 10.50 E/E' Lat: 11.10 PHT: 44.00 MVA PHT: 5.00 Decel Jerauld: 4.98 Aortic Valve AoV Pk Owen: 1.29 AoV Mn Owen: 0.87 AoV VTI: 0.30 AoV Pk Grad: 7.00 Aov Mn Grad: 4.00 TRAVIS Cont.VTI: 2.10 LVOT LVOT Pk Owen: 0.77 LVOT Mn Owen: 0.48 LVOT VTI: 0.15 LVOT Pk Grad: 2.00 LVOT Mn Grad: 1.00 LVOT Diam: 2.30 LVOT Area: 4.15 Diastolic Function MV Pk E: 0.75 MV Pk A: 0.82 E/A: 0.90 E'Medial: 7.18 E/E' Med: 10.50 E' Laterial: 6.74 E/E' Lat: 11.10 Right Ventricle TAPSE (mm): 22.80 TVS' Owen: 13.50 Tricuspid Valve TR Pk Owen: 2.46 TR Pk Grad: 24.00 RA Press: 3.00 RVSP: 27.00 Great Vessels Aorta Sinus of Valsalva: 3.79 2.0-3.5 cm Ao Asc: 3.50 2.1-3.4 cm Ao Arch: 3.20 Updated in Other Vendor System with Status of Final Michael Porter MD electronically signed on 02/03/2025 3:30:01 PM with status of Final
== END ==
LOC: HO.CARD 12:47
PROVIDERS: Visit Provider Internal Medicine
DX: Z01.810 Encounter for preprocedural cardiovascular examination (principal); I65.23 Occlusion and stenosis of bilateral carotid arteries
CPT/HCPCS: 93306

== ENCOUNTER → 2025-02-02 12:54 | Outpatient (BNV) | payer OTHER, SELFPAY | PROVIDERS: Visit Provider Internal Medicine | DX: I51.89 Other ill-defined heart diseases (principal) | CPT/HCPCS: 93306 ==

== ENCOUNTER → 2025-02-04 08:39 | Outpatient (REF) | payer OTHER, SELFPAY ==
--- NOTE | ~2025-02-04 | NM_ITS ---
EXERCISE MYOCARDIAL PERFUSION STUDY INDICATION: Preoperative cardiovascular evaluation TECHNIQUE: The patient was brought in for an exercise perfusion study on 02/04/2025. Patient performed exercise as per Jayson protocol and was injected 30 mCi of sestamibi once target heart rate was achieved. Images were obtained using the SPECT gamma camera interlaced with the gating device. Images were obtained in supine position. Resting perfusion study was performed on 02/05/2025. Patient was administered 30 mCi of sestamibi intravenously at rest. Images were then obtained in supine position. Total DLP 71 mGy-cm. Images were processed with the software and compared side to side in short axis, horizontal long axis and vertical long axis views. FINDINGS: Raw aquisition reviewed. The stress perfusion study showed decreased tracer uptake along the inferior wall. There is some improvement with CT attenuation correction and hence could have components of diaphragmatic attenuation artifact. The gated study shows diminished LV systolic function with calculated LVEF of 38%. LV cavity is normal in size. The gated study shows diminished contractility in the basal to mid inferior wall Resting study shows diminished contractility in the inferior wall, slightly improved compared to stress acquisition. There is improvement with CT attenuation correction suggestive of diaphragmatic attenuation artifact. Gating at rest reveals reduced contractility in the inferior wall with LVEF of 36%. The findings are consistent with mixed perfusion defect in the inferior wall with reversible and fixed components. NM/NM cardiolite stress test IMPRESSION: 1. Myocardial perfusion imaging study shows ischemia/infarct pattern in the inferior wall. 2. Gated LVEF is 38% during stress and 36% with rest. Correlate with echocardiogram. 3. Transient ischemic dilatation not present. EKG component of the test reported separately. Electronically signed by: Michael Porter MD 02/07/2025 12:26 PM EDT
--- NOTE | 2025-02-04 08:43 | CA_ITS ---
Acquisition Time: 2025-02-04 08:58:59 Total Exercise Time: 00:06:10 Test Indications: Pre-Op Evaluation CAROTID STENOSIS Medications: SEE H&P Protocol: MARY GRACE Max HR: 141 BPM 90% of Pred: 156 BPM Max BP: 162/90 mmHG Max Work Load: 7.0 METS Exercise stress test with exercise 6 mins 10 secs of Mary Grace Protocol, achieving 91% MPHR, without any rports of chest pain or SOB, without any arrythmias, with normotensive response to exercise. With baseline T wave inversions, that got more prominent with exercise. In recovery, pt continued to feel well. Nuclear images pending. Test reviewed with Dr. Porter. Referred By: Michael Porter Electronically Signed By: Chris Dee
== END ==
LOC: HO.CARD 08:39
PROVIDERS: Referring Provider Internal Medicine; Visit Provider Internal Medicine
DX: Z01.810 Encounter for preprocedural cardiovascular examination (principal); I65.23 Occlusion and stenosis of bilateral carotid arteries
CPT/HCPCS: 78452; 93017; A9500; J0280; J2785

== ENCOUNTER → 2025-02-04 08:43 | Outpatient (BNV) | payer OTHER, SELFPAY | DX: I25.5 Ischemic cardiomyopathy (principal) | CPT/HCPCS: 78452 ==

== ENCOUNTER → 2025-02-15 07:30 | Outpatient (BNV) | payer OTHER, SELFPAY | PROVIDERS: Admitting Provider Surgery Vascular Surgery; Visit Provider Surgery Vascular Surgery | DX: I10 Essential (primary) hypertension (principal); I65.23 Occlusion and stenosis of bilateral carotid arteries; Z48.812 Encounter for surgical aftercare following surgery on the circulatory system | CPT/HCPCS: 99024 ==

== ENCOUNTER 2025-02-15 10:47 | Inpatient (IN) | payer OTHER, SELFPAY ==
[2025-02-09 12:04] VITALS: BP 116/77; PULSE 73; RESP 16; O2SAT 99; BMI 29.5
--- NOTE | 2025-02-09 12:32 | HO.ANESPROP2 ---
Documented by User: Lisa Jones NP 02/10/25 14:37 HPI - Anesthesia Eval Consult details Narrative: 65yo M for Right Carotid Endarterectomy, 02/15/25 R ICA 80-90% stenosis L ICA 70% stenosis Cardiac optimized. Preop risk stratify with [facility]. No previous cardiology follow. Cardiac studies reviewed. Echocardiogram with LVEF of 60%. Basal inferior/inferoseptal akinesis. No significant valvular findings. In the stress test, he was able to exercise for 6 minutes and 10 seconds, reached 7 METS and reached target heart rate. No chest pain. Baseline T inversions that got more prominent with exercise. Perfusion imaging showed inferior wall ischemia/infarct pattern. Overall, stress test findings could be related to atherosclerotic coronary disease +/-cocaine induced prior infarction/agata-infarct ischemia. Clinically, he has got no symptoms like angina. May proceed with planned carotid surgery. Intermediate cardiac risk. No recent illness No CP/SOB with walking Previous hx CVA 2021 - no deficits TBI - occasional headaches COPD: albuterol ~ 1 weekly STACIE with CPAP QHS Cocaine abuse: None since December. Verbalized understanding of Utox on DOS and risk of cancellation if positive 12/2024 [facility] ED with transfer to behavioral health inpt for suicidal ideation PMFSH Active Problems Active Problems: All Active Problems Hyperlipidemia, unspecified (Acute) Preoperative cardiovascular examination (Acute) Cocaine abuse (Acute) Bilateral carotid artery stenosis (Acute) Hypertension (Acute) Past Medical History Medical History STACIE on CPAP PTSD (post-traumatic stress disorder) TBI (traumatic brain injury) (~1987) HLD (hyperlipidemia) Stroke (~2021) COPD (chronic obstructive pulmonary disease) Hypertension Family History Family History (Updated 01/27/25 @ 13:22 by Taryn Robertson) Mother No problems noted. Father No problems noted. Family history of problems with anesthesia: Unobtainable Surgical History Surgical History Hx of umbilical hernia repair Hx of tonsillectomy Hx of tracheostomy (~1963) History of Problems with Anesthesia: No Social History Social History (Updated 02/09/25 @ 12:38 by Amber Jaramillo RN) Household Members: Other Household Members Other:: fellow veterans Housing: House Are you a primary memory care program resident to a significant other at home: No Do you presently have visiting nurse or other home services: No 75 years or older and lives alone: No Unable to assess alcohol history related to: Refusing to respond Alcohol intake: never Patient Tobacco Use Status: Current everyday Tobacco user Tobacco use type: Cigarette Cigarette Packs Per Day: 1 Cigarettes Per Day: 20.0 Other Past Substance Use Problem:: last used 1-2 months ago Advance Directives: No Advance Directives Information Provided: Yes Advance Directives on File: No Meds Allergies Allergy/AdvReac Type Severity Reaction Status Date / Time No Known Allergies Allergy Verified 02/15/25 06:03 Home Medications ?Medication ?Instructions ?Recorded ?Confirmed ?Last Taken ?Type albuterol sulfate 90 mcg/actuation 1 inh inhalation TID PRN Shortness 01/06/25 02/15/25 Unknown History breath activated powder Of Breath Or Wheezing inhaler,sensor amlodipine 5 mg tablet 5 mg PO DAILY 01/06/25 02/15/25 02/15/25 05:30 History aspirin 81 mg tablet 81 mg PO DAILY 01/06/25 02/15/25 02/14/25 History atorvastatin 20 mg tablet 20 mg PO BEDTIME 01/06/25 02/15/25 Unknown History carboxymethylcellulose sodium 1 % 1 drp ophthalmic (eye) BID 01/06/25 02/15/25 Unknown History eye liquid gel drops cholecalciferol (vitamin D3) 50 50 mcg PO DAILY 01/06/25 02/15/25 Unknown History mcg (2,000 unit) capsule cyanocobalamin (vitamin B-12) 250 250 mcg PO DAILY 01/06/25 02/15/25 Unknown History mcg tablet doxepin 6 mg tablet 6 mg PO BEDTIME PRN Insomnia 01/06/25 02/15/25 Unknown History hydroxyzine HCl 25 mg tablet 25 mg PO BID PRN Anxiety 01/06/25 02/15/25 Unknown History ibuprofen 800 mg tablet 800 mg PO Q8H PRN Headache 01/06/25 02/15/25 01/15/25 History lanolin alcohols-mineral 1 appl topical TID PRN Dry Skin 01/06/25 02/15/25 Unknown History oil-w.petrolatum-ceresin topical cream (Eucerin topical cream) multivitamin 1 tab PO DAILY 01/06/25 02/15/25 Unknown History mupirocin 2 % topical ointment 1 appl topical BID 01/06/25 02/15/25 Unknown History sertraline 100 mg tablet 200 mg PO DAILY 01/06/25 02/15/25 Unknown History thiamine HCl (vitamin B1) 100 mg 100 mg PO DAILY 01/06/25 02/15/25 Unknown History tablet tiotropium 2.5 mcg-olodaterol 2.5 2 puff inhalation DAILY 01/06/25 02/15/25 Unknown History mcg/actuation mist for inhalation (Stiolto Respimat) Exam Height,Weight and Vital Signs: Height 5 ft 9 in Weight 90.718 kg Last Vital Signs Pulse 73 02/09/25 12:04 Resp 16 02/09/25 12:04 BP 116/77 02/09/25 12:04 Pulse Ox 99 02/09/25 12:04 O2 Del Method Room Air 02/09/25 12:04 Pertinent Lab Results Pertinent Lab Results: Lab Results 02/09/25 02/09/25 Range/Units 13:05 13:15 WBC 6.1 (4.8-10.8) X10*3/uL RBC 4.87 (4.60-5.80) X10*6/uL Hgb 14.7 (14.0-18.0) g/dl Hct 43.7 (42.0-52.0) % MCV 89.7 (80.0-98.0) fL MCH 30.2 (27.0-33.0) pg MCHC 33.6 (31.0-36.0) g/dl RDW 16.2 H (11.0-16.0) % Plt Count 206 D (160-400) X10*3/uL MPV 12.4 (9.4-12.4) fL Absolute Nucleated RBC 0.000 (0.0-0.012) X10*3/uL Nucleated RBC % (auto) 0.0 (0.0-0.2) /100WBC PT 11.1 (10.9-12.4) SEC INR 1.0 (0.9-1.1) APTT 30.1 (26.7-34.1) SEC Sodium 143 (135-145) mmol/L Potassium 4.0 (3.3-5.1) mmol/L Chloride 106 (96-108) mmol/L Carbon Dioxide 30 H (22-29) mmol/L Anion Gap 11 L (12-20) BUN 19 H (9-16) mg/dL Creatinine 1.09 (0.5-1.4) mg/dL Estim Creat Clear Calc 76.2 Estimated GFR > 60 Random Glucose 88 (60-115) mg/dL Calcium 9.2 (8.4-10.2) mg/dL Blood Type O Negative Antibody Screen POSITIVE Antibody Identification Anti-D Narrative Narrative: EKG 12/2024 Vent. Rate : 54 BPM Atrial Rate : 54 BPM P-R Int : 122 ms QRS Dur : 88 ms QT Int : 474 ms P-R-T Axes : 56 20 24 degrees QTcB Int : 449 ms Sinus bradycardia Otherwise normal ECG When compared with ECG of 18-Dec-2024 09:49, ST elevation now present in Anterior leads Nonspecific T wave abnormality no longer evident in Lateral leads ECHO 01/2025 Conclusions: - The left ventricular systolic function is normal. The calculated ejection fraction is 60% by biplane method. - The basal inferior and basal inferoseptal segments are akinetic. - No obvious valvular pathology seen on this study. NM cardiolite stress test 01/2025 IMPRESSION: 1. Myocardial perfusion imaging study shows ischemia/infarct pattern in the inferior wall. 2. Gated LVEF is 38% during stress and 36% with rest. Correlate with echocardiogram. 3. Transient ischemic dilatation not present. (Per Dr Porter review Overall, stress test findings could be related to atherosclerotic coronary disease +/-cocaine induced prior infarction/agata-infarct ischemia. Clinically, he has got no symptoms like angina. ) CT angio head neck 12/2024 IMPRESSION: Irregular mixed plaques right ICA at representing 80-90% stenosis. Mixed plaques left ICA representing 70% stenosis. No dissection. No main cerebral artery occlusion or embolus. No acute intracranial hemorrhage. Codominant vertebral arteries. Atherosclerosis disease, intracranial. Airway Mallampati Class: II TM Dist: >3cm Neck ROM: Limited Loose/Missing/Broken Teeth: No (crowns throughout stable) Heart: RRR Lungs: CTAB Assessment and Plan Assessment Anesthesia Assessment: Anesthesia Plan Discussed, Smoking Cess. Discussed and PAT Visit Final Anesthetic Review Family History of Problems with Anesthesia: Unobtainable History of Problems with Anesthesia: No Documented by User: Chase Bates MD 02/15/25 07:25 PMF Past Medical History Medical History STACIE on CPAP PTSD (post-traumatic stress disorder) TBI (traumatic brain injury) (~1987) HLD (hyperlipidemia) Stroke (~2021) COPD (chronic obstructive pulmonary disease) Hypertension Functional capacity: independent ambulation Family History Family History (Updated 01/27/25 @ 13:22 by Taryn Robertson) Mother No problems noted. Father No problems noted. Surgical History Surgical History Hx of umbilical hernia repair Hx of tonsillectomy Hx of tracheostomy (~1963) Social History Social History (Updated 02/09/25 @ 12:38 by Amber Jaramillo RN) Household Members: Other Household Members Other:: fellow veterans Housing: House Are you a primary memory care program resident to a significant other at home: No Do you presently have visiting nurse or other home services: No 75 years or older and lives alone: No Unable to assess alcohol history related to: Refusing to respond Alcohol intake: never Patient Tobacco Use Status: Current everyday Tobacco user Tobacco use type: Cigarette Cigarette Packs Per Day: 1 Cigarettes Per Day: 20.0 Other Past Substance Use Problem:: last used 1-2 months ago Advance Directives: No Advance Directives Information Provided: Yes Advance Directives on File: No Meds Allergies Allergy/AdvReac Type Severity Reaction Status Date / Time No Known Allergies Allergy Verified 02/15/25 06:03 Home Medications ?Medication ?Instructions ?Recorded ?Confirmed ?Last Taken ?Type albuterol sulfate 90 mcg/actuation 1 inh inhalation TID PRN Shortness 01/06/25 02/15/25 Unknown History breath activated powder Of Breath Or Wheezing inhaler,sensor amlodipine 5 mg tablet 5 mg PO DAILY 01/06/25 02/15/25 02/15/25 05:30 History aspirin 81 mg tablet 81 mg PO DAILY 01/06/25 02/15/25 02/14/25 History atorvastatin 20 mg tablet 20 mg PO BEDTIME 01/06/25 02/15/25 Unknown History carboxymethylcellulose sodium 1 % 1 drp ophthalmic (eye) BID 01/06/25 02/15/25 Unknown History eye liquid gel drops cholecalciferol (vitamin D3) 50 50 mcg PO DAILY 01/06/25 02/15/25 Unknown History mcg (2,000 unit) capsule cyanocobalamin (vitamin B-12) 250 250 mcg PO DAILY 01/06/25 02/15/25 Unknown History mcg tablet doxepin 6 mg tablet 6 mg PO BEDTIME PRN Insomnia 01/06/25 02/15/25 Unknown History hydroxyzine HCl 25 mg tablet 25 mg PO BID PRN Anxiety 01/06/25 02/15/25 Unknown History ibuprofen 800 mg tablet 800 mg PO Q8H PRN Headache 01/06/25 02/15/25 01/15/25 History lanolin alcohols-mineral 1 appl topical TID PRN Dry Skin 01/06/25 02/15/25 Unknown History oil-w.petrolatum-ceresin topical cream (Eucerin topical cream) multivitamin 1 tab PO DAILY 01/06/25 02/15/25 Unknown History mupirocin 2 % topical ointment 1 appl topical BID 01/06/25 02/15/25 Unknown History sertraline 100 mg tablet 200 mg PO DAILY 01/06/25 02/15/25 Unknown History thiamine HCl (vitamin B1) 100 mg 100 mg PO DAILY 01/06/25 02/15/25 Unknown History tablet tiotropium 2.5 mcg-olodaterol 2.5 2 puff inhalation DAILY 01/06/25 02/15/25 Unknown History mcg/actuation mist for inhalation (Stiolto Respimat) Exam Exam Date and Time: 02/15/2025 Assessment and Plan Final Anesthetic Review NPO: Yes ASA Class: III Final Preanesthetic Review: No Changes in Pt Med Stat, Meds/Allgs Chart Reviewed, Consent Obtained/Reviewed, Anes Risks/Benef Reviewed and DNR Form (If Appl.) (suspended) Patient Risk: Intermediate Procedure Risk: Intermediate Anesthetic Plan Anesthetic Plan: GA Disposition: Extended PACU
[2025-02-09 13:46] LABS: Hematocrit 43.7 % (42.0-52.0); Hemoglobin 14.7 g/dl (14.0-18.0); Mean Corpuscular HGB Conc 33.6 g/dl (31.0-36.0); Mean Corpuscular Hemoglobin 30.2 pg (27.0-33.0); Mean Corpuscular Volume 89.7 fL (80.0-98.0); NRBC Abs Auto 0.000 X10*3/uL (0.0-0.012); NRBC Pct Auto 0.0 /100WBC (0.0-0.2); Platelet Count 206 X10*3/uL (160-400); Red Blood Count 4.87 X10*6/uL (4.60-5.80); White Blood Count 6.1 X10*3/uL (4.8-10.8)
[2025-02-09 13:51] LABS: INTERNATIONAL NORM RATIO 1.0 (0.9-1.1); Prothrombin Time 11.1 SEC (10.9-12.4)
[2025-02-09 13:54] LABS: Partial Thromboplastin Time 30.1 SEC (26.7-34.1)
[2025-02-09 14:48] LABS: Anion Gap 11 (12-20); Blood Urea Nitrogen 19 mg/dL (9-16); Calcium 9.2 mg/dL (8.4-10.2); Carbon Dioxide 30 mmol/L (22-29); Chloride 106 mmol/L (96-108); Creatinine Clr Calc Pharmacy 76.2; Estimated Glomerular Filt Rate > 60; Potassium 4.0 mmol/L (3.3-5.1); Sodium 143 mmol/L (135-145)
[2025-02-15] VITALS (29 sets, daily range): BP systolic 113–175; BP diastolic 65–97; PULSE 56–97; RESP 6–21; TEMP 36.2–37.1; O2SAT 91–100; BMI 30.4
[2025-02-15] MEDS: Lactated Ringers 1,000 ML 100 ML IVCONT ×3 (06:20→20:25)
--- NOTE | 2025-02-15 06:29 | PC.NURSE ---
Patient states he is a DNR/DNI. He does not have any paperwork with him such as a MOLST form. Anesthesia made aware and reversal form available for anesthesia to review with patient.
[2025-02-15 06:37] LABS: Cannabinoid Screen Urine Not Detected (Not Detect)
--- NOTE | 2025-02-15 07:27 | MHC.SHP ---
Pre-Procedural Eval Section A - 24 Hr Update-Section A only Date of Service: 02/15/25 Section B - Complete if H&P > 30 days Chief Complaint: Occlusion and stenosis of right carotid artery Relevant Family History (Specify if Yes): No Relevant Social History: Tobacco Use Present Medications: see Short Stay Collaborative assessment Medical History: Significant History Allergies: Allergies Allergy/AdvReac Type Severity Reaction Status Date / Time No Known Allergies Allergy Verified 02/15/25 06:03 Review of Systems Sugical H&P ROS: Negative: Constitution, Cardiovascular, Respiratory and Neurological Exam Surgical H&P Exam: Normal: HEENT, Normal: Heart, Normal: Lungs, Normal: Extremities and Normal: Neurological Plan Diagnosis/Plan: Unchanged I have reviewed the history and physical and performed a pertinent physical examination on my patient. No changes have occurred unless specified. Time Spent With Patient Time: Total time managing care of this patient today _15___ minutes.
--- NOTE | 2025-02-15 10:44 | W.PM.OPN ---
Operative Note Operative Note Date of Service: 02/15/25 Narrative: Operative note by [facility] Preoperative diagnosis:1. Right Carotid stenosis Postoperative diagnosis: Same Procedure: Right Carotid endarterectomy with patch angioplasty Surgeon:Maximiliano Riggins M.D. Substation Engineer: Luciano WEBB Anesthesia: General Specimens: 1 Drains: 1 Estimated blood loss: 100 mL Indications: 65-year-old gentleman with high-grade right carotid stenosis noted to be nearly 90% on CT angiogram now presents for right carotid endarterectomy The patient has signed the informed consent after reviewing risks, complications, benefits, and alternatives previously discussed with the patient. The patient was given the opportunity to ask any additional questions or voice any concerns. All questions were answered to the patient's satisfaction. Procedure in detail: Patient was taken to the operating room and placed in a supine position and prepped and draped in sterile manner with ChloraPrep. Longitudinal incision was made along the anterior border of the right sternocleidomastoid carried down through the subcutaneous fat and fascia. Hemostasis was obtained with electrocautery. The platysma muscle was then divided. The carotid sheath was identified in open. The vagus nerve, Ancef cervicalis, and hypoglossal nerves were identified and avoided. The common internal and external carotids were then freed from the surrounding tissue. At this point, 7000 units of heparin was administered and allowed to circulate for 5 minutes time to take effect. The internal, common, external carotids were clamped in that order. Once this was accomplished, we proceeded with the procedure. The carotid bulb was opened with an 11 blade and extended with Medina scissors through the very tight lesion into normal internal carotid artery. This was then extended down into the common carotid artery. We then placed a Matos shunt. Then the plaque was sharply excised proximally and an eversion endarterectomy was performed successfully at the external. The plaque tapered nicely on to the internal and no tacking sutures were necessary. Heparinized saline was injected and no evidence of flapping or other debris was noted. The remaining carotid was examined, which showed no debris or flaps present. At this point a XenoSure patch was brought on to the field. This was anastomosed to the artery using a 6 0 Prolene in a running fashion. Once approximately 4/5 of the patch was sewn in the shunt was then removed. Prior to the last stitch the internal carotid was back bled through this. Heparinized saline was instilled into the carotid. The last stitch was tied. Hemostasis was excellent. The internal carotid was gently occluded while while of the external and internal were open in that order. Finally the internal was then opened and flow was restored to the entire system. Hemostasis was achieved with interrupted 7-0 Prolene sutures. The wound was irrigated thoroughly. We then used Vistaseal as a hemostatic agent. Deep layer was reapproximated using a 2-0 poly Sorb and finally the superficial layer with a 3-0 Polysorb. The skin was closed in a subcuticular manner. The patient awoke and neurologic status was checked and appeared to be intact. Sponge, needle and instrument counts were correct. The patient tolerated the procedure well. Returned to recovery with stable vitals. This note is constructed using voice recognition software. While every effort has been made to ensure accuracy, autistic teacher errors may have been included. Thank you for allowing me to participate in the care of your patient. Yours sincerely, Maximiliano Riggins MD, FACS, R.P.V.I.
--- NOTE | 2025-02-15 13:09 | PHA.MEDREC ---
Pharmacy Consult ? Medication Reconciliation Pharmacy has reviewed the medication reconciliation completed by nursing, utilized [facility], difference was amlodipine 5 to 10mg daily, let provider know.
--- NOTE | 2025-02-15 13:18 | PM.CCHP ---
History of Present Illness Date of Service: 02/15/25 Chief Complaint: Elective surgery 65-year-old gentleman with past medical history of hypertension, COPD was seen in the ED on 12/18/2024 with complaints of dizziness and leaning towards left suggestive of TIA so underwent CTA that showed results as below. He was referred to vascular surgery. He underwent Cardiac stress test showed inferior wall ischemia/infarct, EF decreased to 36%. CTA of head and neck done for TIAs showed right ICA 80-90% stenosis, left ICA 70% stenosis. Today he presented for an elective carotid endarterectomy which he underwent successfully and is in ICU for postop care Review of Systems Constitutional: Constitutional: Denies body ache(s) and Denies chills Eyes: Eyes: Denies exophthalmos and Denies change in vision ENT: Reports Normal hearing present and Denies bleeding gums Cardiovascular: Cardiovascular: Denies chest pain and Denies diaphoresis Respiratory: Respiratory: Denies change in phlegm color and Denies chest congestion Gastrointestinal: Gastrointestinal: Denies abdominal pain and Denies hematochezia Musculoskeletal: Musculoskeletal: Denies back pain and Denies myalgias Neurologic: Reports Normal hearing present, Denies Neuro-related abnormal movements and Denies behavioral changes Psychiatric: Psychiatric: Denies abnormal sleep pattern and Denies behavioral changes PMFSH Past Medical History Medical History (Updated 02/15/25 @ 13:27 by Richi Betancourt MD) STACIE on CPAP PTSD (post-traumatic stress disorder) TBI (traumatic brain injury) (~1987) HLD (hyperlipidemia) Stroke (~2021) COPD (chronic obstructive pulmonary disease) Hypertension Family History Family History (Updated 01/27/25 @ 13:22 by Taryn Robertson) Mother No problems noted. Father No problems noted. Surgical History Surgical History Hx of umbilical hernia repair Hx of tonsillectomy Hx of tracheostomy (~1963) Social History Social History (Updated 02/09/25 @ 12:38 by Amber Jaramillo RN) Household Members: Unknown / Unable to assess Household Members Other:: fellow veterans Housing: Unknown / Unable to assess Are you a primary administrator health care facility to a significant other at home: No Do you presently have visiting nurse or other home services: No Unable to assess alcohol history related to: Refusing to respond Alcohol intake: never Patient Tobacco Use Status: Tobacco use Unknown Tobacco use type: Cigarette Cigarette Packs Per Day: 1 Cigarettes Per Day: 20.0 Use of substances other than those prescribed or required for medical reasons: No Have you been hit, kicked, punched, or otherwise hurt by someone within the past year? If so, by whom?: No Spiritual Healthcare Practices: refusing to respond [facility] Healthcare Practices: refusing to respond Cultural Healthcare Practices: refusing to respond Are you DNR?: No Advance Directives: No Advance Directives Information Provided: Yes Advance Directives on File: No Do you have a plan to hurt others: No Plan Poor oral hygiene: No Meds Allergies Allergy/AdvReac Type Severity Reaction Status Date / Time No Known Allergies Allergy Verified 02/15/25 06:03 Active Medications: Current Medications Acetaminophen (Acetaminophen 325 Mg Tablet) 650 mg PO Q6H PRN PRN Reason: Pain, Mild 1-3,fever,headache Albuterol Sulfate (Albuterol Sulfate 90 Mcg 8 Gm Inhaler) 1 puff INHALE TID PRN PRN Reason: Shortness Of Breath Or Wheezing Amlodipine Besylate (Amlodipine Besylate 5 Mg Tablet) 5 mg PO DAILY JAVIER; Protocol Aspirin (Aspirin Enteric Coated 81 Mg Tablet.Dr) 81 mg PO DAILY JAVIER Atorvastatin Calcium (Atorvastatin Calcium 20 Mg Tablet) 20 mg PO BEDTIME JAVIER Calcium Carbonate (Calcium Carbonate 750 Mg Tab.Chew) 750 mg PO Q4H PRN PRN Reason: Heartburn Cyanocobalamin (Cyanocobalamin (Vitamin B-12) 500 Mcg Tablet) 250 mcg PO DAILY JAVIER Hydralazine HCl (Hydralazine Hcl 20 Mg/Ml Vial) 20 mg IVPUSH Q4H PRN; Protocol PRN Reason: hypertension Lactated Ringer's (Lr) 1,000 mls @ 100 mls/hr IVCONT .Q10H JAVIER Last Admin: 02/15/25 12:19 Dose: 100 mls/hr Ibuprofen (Ibuprofen 800 Mg Tablet) 800 mg PO Q8H PRN PRN Reason: Headache Magnesium Hydroxide (Milk Of Magnesia 30 Ml Oral.Susp) 30 ml PO DAILY PRN PRN Reason: Constipation Melatonin (Melatonin 3 Mg Tablet) 6 mg PO BEDTIME PRN PRN Reason: Insomnia Morphine Sulfate (Morphine Sulfate 2 Mg/Ml Cartridge) 2 mg IVPUSH Q4H PRN; Protocol PRN Reason: Pain, Severe (Pain Scale 7-10) Last Admin: 02/15/25 12:04 Dose: 2 mg Multivitamins/Vitamin C (Multivitamin Tablet) 1 tab PO DAILY [facility] Naloxone HCl (Naloxone Hcl 0.4 Mg/Ml Vial) 0.04 mg IVPUSH Q5M PRN PRN Reason: Excessive sedation or RR < 8 Non-Formulary Medication (Carboxymethylcellulose Sodium) 1 drop EYE-BOTH BID [facility] Non-Formulary Medication (Tiotropium-Olodaterol [Stiolto Respimat]) 2 puff INHALE DAILY [facility] Ondansetron HCl (Ondansetron Hcl 4 Mg/2 Ml Vial) 4 mg IVPUSH ONCE PRN PRN Reason: Nausea and Vomiting Stop: 02/15/25 13:25 Oxycodone HCl (Oxycodone Hcl Immed Release 5 Mg Tablet) 5 mg PO ONCE PRE DISCHARGE PRN PRN Reason: Pre Discharge if no IV Access Stop: 02/15/25 13:25 Oxycodone HCl (Oxycodone Hcl Immed Release 5 Mg Tablet) 5 mg PO Q4H PRN PRN Reason: Pain, Moderate(Pain Scale 4-6) Sertraline HCl (Sertraline Hcl 100 Mg Tablet) 200 mg PO DAILY [facility] Sodium Chloride (0.9 % Sodium Chloride Flush 3 Ml Syringe) 3 ml IVFLUSH QSHIFT [facility] Thiamine HCl (Thiamine Hcl 100 Mg Tablet) 100 mg PO DAILY [facility] Vitamin D (Cholecalciferol (Vitamin D3) 25 Mcg Tablet) 50 mcg PO DAILY [facility] Home Medications ?Medication ?Instructions ?Recorded ?Confirmed ?Last Taken ?Type albuterol sulfate 90 mcg/actuation 1 inh inhalation TID PRN Shortness 01/06/25 02/15/25 Unknown History breath activated powder Of Breath Or Wheezing inhaler,sensor aspirin 81 mg tablet 81 mg PO DAILY 01/06/25 02/15/25 02/14/25 History atorvastatin 20 mg tablet 20 mg PO BEDTIME 01/06/25 02/15/25 Unknown History hydroxyzine HCl 25 mg tablet 25 mg PO BID PRN Anxiety 01/06/25 02/15/25 Unknown History mupirocin 2 % topical ointment 1 appl topical BID 01/06/25 02/15/25 Unknown History sertraline 100 mg tablet 200 mg PO DAILY 01/06/25 02/15/25 Unknown History tiotropium 2.5 mcg-olodaterol 2.5 2 puff inhalation DAILY 01/06/25 02/15/25 Unknown History mcg/actuation mist for inhalation (Stiolto Respimat) amlodipine 10 mg tablet 10 mg PO DAILY 02/15/25 02/15/25 02/15/25 05:30 History aripiprazole 5 mg tablet 5 mg PO DAILY 02/15/25 02/15/25 Unknown History camphor-menthol 0.5 %-0.5 % lotion 1 appl topical QID PRN itchy skin 02/15/25 02/15/25 Unknown History on back and right thigh clobetasol 0.05 % topical cream 1 appl topical BID PRN dermatitis 02/15/25 02/15/25 Unknown History melatonin 3 mg tablet 6 mg PO BEDTIME PRN Insomnia 02/15/25 02/15/25 Unknown History Physical Exam Vital Signs: Vital Signs: Last Vital Signs Temp 97.2 F 02/15/25 11:15 Pulse 56 02/15/25 11:30 Resp 6 L 02/15/25 11:30 BP 137/84 02/15/25 11:30 Pulse Ox 94 02/15/25 11:30 O2 Del Method Nasal Cannula 02/15/25 11:30 O2 Flow Rate 3 02/15/25 11:30 BMI result Body Mass Index 30.4 Neuro: Cranial nerves: Yes Normal hearing present Results Labs 02/09/25 13:15 02/09/25 13:15 Labs: Laboratory Results - last 24 hr 02/15/25 05:58 Urine Opiates Screen Not Detected Ur Buprenorphine Scrn Not Detected Ur Oxycodone Screen Not Detected Urine Methadone Screen Not Detected Urine Fentanyl Screen Not Detected Ur Barbiturates Screen Not Detected Ur Phencyclidine Scrn Not Detected Ur Amphetamines Screen Not Detected U Benzodiazepines Scrn Not Detected Urine Cocaine Screen Not Detected U Marijuana (THC) Screen Not Detected Assessment and Plan (1) Hypertension: Status: Acute (2) Postop carotid endarterectomy surveillance, encounter for: Status: Acute Plan Carotid stenosis: Initially presented to the ED with symptoms of TIA on 12/18/2024 for which he underwent CTA of head and neck which showed 80-90% right ICA stenosis, 70% left ICA stenosis Today he is admitted to the hospital for an elective carotid endarterectomy which he underwent successfully and uncomplicated. We will closely monitor his blood pressures, we will keep him normotensive Aspirin and statin to be started tomorrow as per vascular surgery We will look for any signs of bleeding, respiratory distress, dysphagia and we will monitor H and H Hypertension: We will restart home amlodipine 10 mg We will do as needed hydralazine COPD: Duo nebs as needed We will monitor respiratory status Prophylaxis: SCD, pantoprazole
[2025-02-15] MEDS: Albuterol/Iprat 2.5/0.5MG 3 ML AMPUL.NEB INHALE ×2 (15:18→20:14)
--- NOTE | 2025-02-15 15:44 | PC.NURSE ---
Patient arrived to unit via bed at 1200 - Small sanguineous staining and increased edema to right neck surgical site noted upon arrival - c/o of 10/10 pain to right neck - Morphine 2mg IVP administered at 1204. 1310 SBP maintaining >170 on nate w/ good waveform - Hydralazine 20mg IVP ordered and administered with good effect. Patient reports unable to swallow pills at this time because my throat feels too tight - MD notified and PO Norvasc held. 1410 patient moaning, c/o 10/10 pain to right neck - Dr Betancourt notified - additional x1 dose Morphine 2mg IVP ordered and administered at 1416. 1540 patient moaning, c/o of 10/10 pain to right neck - Dr Betancourt notified - PRN Morphine switched to Dialudid - awaiting pharmacy to verify. Patient requesting water - pt passed bedside nursing swallow eval. Care ongoing.
--- NOTE | 2025-02-15 16:04 | HO.SKINPHOTO ---
Location: Surgical Site
[2025-02-15] MEDS: 0.9 % Sodium Chloride Flush 3 ML SYRINGE IVFLUSH (20:25)
[2025-02-16] VITALS (18 sets, daily range): BP systolic 105–153; BP diastolic 58–81; PULSE 70–92; RESP 13–21; TEMP 36.1–37.7; O2SAT 91–98; BMI 30.4
[2025-02-16] MEDS: Lactated Ringers 1,000 ML 100 ML IVCONT (04:50)
[2025-02-16 04:54] LABS: MANUAL DIFF FLAG NO
[2025-02-16 04:55] LABS: Hematocrit 37.9 % (42.0-52.0); Hemoglobin 12.6 g/dl (14.0-18.0); Imm Gran Abs Auto 0.04 X10*3/uL (0.00-0.03); Imm Gran Pct Auto 0.3 % (0.0-0.4); Lymphocytes Absolute Auto 1.7 X10*3/uL (1.2-4.9); Mean Corpuscular HGB Conc 33.2 g/dl (31.0-36.0); Mean Corpuscular Hemoglobin 29.9 pg (27.0-33.0); Mean Corpuscular Volume 89.8 fL (80.0-98.0); NRBC Abs Auto 0.000 X10*3/uL (0.0-0.012); NRBC Pct Auto 0.0 /100WBC (0.0-0.2); Platelet Count 177 X10*3/uL (160-400); Red Blood Count 4.22 X10*6/uL (4.60-5.80); White Blood Count 11.7 X10*3/uL (4.8-10.8)
[2025-02-16 05:09] LABS: Anion Gap 12 (12-20); Blood Urea Nitrogen 25 mg/dL (9-16); Calcium 8.4 mg/dL (8.4-10.2); Carbon Dioxide 24 mmol/L (22-29); Chloride 108 mmol/L (96-108); Creatinine Clr Calc Pharmacy 90.5; Estimated Glomerular Filt Rate > 60; Potassium 5.0 mmol/L (3.3-5.1); Sodium 139 mmol/L (135-145)
[2025-02-16] MEDS: Albuterol/Iprat 2.5/0.5MG 3 ML AMPUL.NEB INHALE ×2 (07:32→11:20)
[2025-02-16] MEDS: Aspirin Enteric Coated 81 MG TABLET.DR PO (08:18)
--- NOTE | 2025-02-16 08:22 | HO.POSTANES ---
Post Anesthesia Evaluation Post Anesthesia Evaluation Date of Service: 02/16/25 Vital Signs: Vital Signs Temp Pulse Pulse Resp BP BP Pulse Ox 02/16/25 08:00 97.0 F 82 20 145/78 H 97 02/16/25 07:48 72 113/68 02/16/25 07:34 72 15 02/16/25 07:00 72 15 139/72 94 02/16/25 06:00 74 18 123/66 92 02/16/25 05:22 73 17 02/16/25 05:00 70 14 105/58 L 94 02/16/25 04:05 16 02/16/25 04:00 73 116/62 02/16/25 04:00 98.3 F 76 13 131/66 94 02/16/25 03:00 75 15 129/66 96 02/16/25 02:00 75 13 128/67 95 02/16/25 01:00 75 21 H 128/66 96 02/16/25 00:00 99.8 F 77 17 121/63 97 02/15/25 23:50 77 124/67 02/15/25 23:10 16 02/15/25 23:00 85 20 121/67 95 02/15/25 22:00 92 21 H 118/66 93 02/15/25 21:00 89 13 136/68 95 O2 Del Method O2 Flow Rate 02/16/25 08:00 Nasal Cannula 2 02/16/25 07:48 02/16/25 07:34 02/16/25 07:00 CPAP 3 02/16/25 06:00 CPAP 3 02/16/25 05:22 02/16/25 05:00 CPAP 3 02/16/25 04:05 02/16/25 04:00 02/16/25 04:00 CPAP 3 02/16/25 03:00 CPAP 3 02/16/25 02:00 CPAP 3 02/16/25 01:00 CPAP 3 02/16/25 00:00 CPAP 3 02/15/25 23:50 02/15/25 23:10 02/15/25 23:00 CPAP 3 02/15/25 22:00 CPAP 3 02/15/25 21:00 CPAP 3 Anesthesia: General Mental Status: Awake Pain Control: Satisfactory Nausea/Vomiting: None Hydration: Adequate Anesthesia-Related Issues: No Anes. Related Issues
--- NOTE | 2025-02-16 08:38 | P.PNCC_ITS ---
Subjective Subjective Date of Service: 02/16/25 Interval History: No new complaints overnight Used CPAP to sleep overnight Critical Care Time (minutes): 35 Physical Exam 2 Vital Signs: Vital Signs: Last Vital Signs Temp 97.0 F 02/16/25 08:00 Pulse 82 02/16/25 08:00 Resp 20 02/16/25 08:00 BP 145/78 H 02/16/25 08:00 Pulse Ox 97 02/16/25 08:00 O2 Del Method Nasal Cannula 02/16/25 08:00 O2 Flow Rate 2 02/16/25 08:00 BMI result Body Mass Index 30.4 General: Not in any acute distress, ill appearing and tired appearing Nutritional Appearance: well nourished and overweight Eyes: appearance normal, both eyes and all related structures; Alignment and Position: alignment normal and position normal Neck: No lymphadenopathy, no thyromegaly Resp: bilateral air entry equal, occasional added sounds present Cardio: Regular rate, regular rhythm; Heart sounds: S1 normal heart sound present and S2 normal heart sound present GI: soft, nontender, no guarding, no hepatosplenomegaly : bladder normal to inspection, bladder normal to palpation, no renal angle tenderness Skin: no rashes or lesions noted and elasticity normal Neuro: oriented to person, oriented to place, oriented to time and moves all extremities Objective Data Labs 02/16/25 04:45 02/16/25 04:45 Labs: Laboratory Results - last 24 hr 02/16/25 04:45 WBC 11.7 H RBC 4.22 L Hgb 12.6 L Hct 37.9 L MCV 89.8 MCH 29.9 MCHC 33.2 RDW 16.2 H Plt Count 177 MPV 11.9 Immature Gran % (Auto) 0.3 Neut % (Auto) 73.6 H Lymph % (Auto) 14.9 L [place] % (Auto) 11.1 H Eos % (Auto) 0.0 Baso % (Auto) 0.1 Lymph # (Auto) 1.7 [place] # (Auto) 1.3 H Eos # (Auto) 0.0 Baso # (Auto) 0.0 Abs Immat Gran (auto) 0.04 H Absolute Neuts (auto) 8.6 H Absolute Nucleated RBC 0.000 Nucleated RBC % (auto) 0.0 Sodium 139 Potassium 5.0 D Chloride 108 Carbon Dioxide 24 Anion Gap 12 BUN 25 H Creatinine 0.93 Estim Creat Clear Calc 90.5 Estimated GFR > 60 Random Glucose 110 Calcium 8.4 D Progress Note: A&P Assessment and plan (1) Hypertension: Status: Acute (2) Bilateral carotid artery stenosis: Status: Acute (3) Postop carotid endarterectomy surveillance, encounter for: Status: Acute Plan Carotid stenosis: Initially presented to the ED with symptoms of TIA on 12/18/2024 for which he underwent CTA of head and neck which showed 80-90% right ICA stenosis, 70% left ICA stenosis Underwent elective carotid endarterectomy yesterday successfully and uncomplicated; did well post op. We will closely monitor his blood pressures, we will keep him normotensive Aspirin and statin as per vascular surgery continue to monitor for any signs of bleeding, respiratory distress, dysphagia and we will monitor H and H Hypertension: continue home amlodipine 10 mg as needed hydralazine COPD: Duo nebs as needed We will monitor respiratory status STACIE: used night time CPAP Prophylaxis: SCD, pantoprazole Quality Stroke Does the patient have a stroke diagnosis?: No VTE Prior VTE?: No VTE Risk Level:: Medical - moderate - high VTE Device Contraindication: N/A - Device Ordered VTE Drug Contraindication: N/A - Med Ordered
--- NOTE | 2025-02-16 12:31 | PM.DS ---
DS: Providers Provider Date of Service: 02/16/25 Date of admission: 02/15/25 10:47 Date of discharge: 02/16/25 Primary care physician: Unknown Physician DS: Diagnosis Discharge Diagnosis (1) Hypertension: Status: Acute (2) Bilateral carotid artery stenosis: Status: Acute (3) Postop carotid endarterectomy surveillance, encounter for: Status: Acute DS: Summary Hospital Course Hospital Course: 65-year-old gentleman underwent elective right carotid endarterectomy for high-grade carotid stenosis nearly 90%. He did well postoperatively and was observed in the ICU overnight. Postop day 1 was tolerating a regular diet neurologically intact when blood pressure was stable. He was subsequently discharged. Condition upon discharge was stable. Status at Discharge Functional status at discharge: independent ambulation Overall status at discharge: patient is back to baseline Time Attestation Discharge Coordination Time (in mins): Thirty-five Quality: Safe Use of Opioids Does Pt have an Active Cancer Diagnosis on the Problem List?: No Quality: Stroke Does the patient have a stroke diagnosis?: No Physical Exam Vital Signs: Vital Signs: Last Vital Signs Temp 98.6 F 02/16/25 12:00 Pulse 92 02/16/25 12:00 Resp 20 02/16/25 12:00 BP 153/81 H 02/16/25 12:00 Pulse Ox 98 02/16/25 12:00 O2 Del Method Room Air 02/16/25 12:00 O2 Flow Rate 1 02/16/25 10:00 BMI result Body Mass Index 30.4 Const: General: cooperative, healthy appearing and comfortable Orientation/consciousness: oriented to person, oriented to place and oriented to time HEENT: Head: Yes normal to inspection Neck: Neck: Yes normal visual inspection Carotids: no bruits Chest: Chest palpation & inspection: normal inspection of the chest Resp: Effort & Inspection: normal respiratory effort and able to speak in complete sentences Auscultation: clear to auscultation bilaterally, no crackles, no rales, no rhonchi and no wheezes Cardio: Rate: regular rate Rhythm: regular rhythm Heart sounds: S1 normal heart sound present and S2 normal heart sound present Bruits: no carotid bruits Peripheral pulses: Peripheral pulses 2+ throughout GI: Inspection: Yes normal to inspection Skin: Other: Right neck incision healing well Wounds: no wounds Hair: normal Neuro: General: oriented to person, oriented to place and oriented to time Cranial nerves: Yes CN's II-XII intact bilaterally and Yes Normal hearing present Cognition (Neuro): normal cognition Motor exam (neuro): 5/5 motor strength present throughout Extrem: Other: venous exam: No significant superficial varicosities or spider telangiectasias, minimal edema General: No clubbing, No cyanosis and No edema Psych: Appearance: grossly normal Mental Status: mental status grossly normal Speech and movement: Normal speech and movement present DS: Data Data Completed and Pending Pending studies at discharge: Pending at discharge 02/15/25 09:34 Surgical [PTH] Routine Labs on day of discharge: Laboratory Results - last 24 hr 02/16/25 04:45 WBC 11.7 H RBC 4.22 L Hgb 12.6 L Hct 37.9 L MCV 89.8 MCH 29.9 MCHC 33.2 RDW 16.2 H Plt Count 177 MPV 11.9 Immature Gran % (Auto) 0.3 Neut % (Auto) 73.6 H Lymph % (Auto) 14.9 L [place] % (Auto) 11.1 H Eos % (Auto) 0.0 Baso % (Auto) 0.1 Lymph # (Auto) 1.7 [place] # (Auto) 1.3 H Eos # (Auto) 0.0 Baso # (Auto) 0.0 Abs Immat Gran (auto) 0.04 H Absolute Neuts (auto) 8.6 H Absolute Nucleated RBC 0.000 Nucleated RBC % (auto) 0.0 Sodium 139 Potassium 5.0 D Chloride 108 Carbon Dioxide 24 Anion Gap 12 BUN 25 H Creatinine 0.93 Estim Creat Clear Calc 90.5 Estimated GFR > 60 Random Glucose 110 Calcium 8.4 D Discharge Plan Discharge Anticipated Discharge Date/Time: 02/16/25 12:25 Patient Disposition: Home, Self-Care Discharge Diagnosis: Status post right carotid endarterectomy Referrals: Physician,Unknown J [Primary Care Provider, Medical] - 1 Week Discharge Medications: New oxycodone 5 mg capsule 5 mg PO Q8H PRN (Reason: pain) Qty: 7 0RF Rx Instructions: Partial Fill upon patient request. Continued clobetasol 0.05 % Cream 1 appl TOPICAL BID PRN (Reason: dermatitis) Rx Instructions: 1 week on, 1 week off melatonin 3 mg Tablet 6 mg PO BEDTIME PRN (Reason: Insomnia) amlodipine 10 mg Tablet 10 mg PO DAILY aripiprazole 5 mg Tablet 5 mg PO DAILY camphor-menthol 0.5-0.5 % Lotion 1 appl TOPICAL QID PRN (Reason: itchy skin on back and right thigh) Stiolto Respimat 2.5-2.5 mcg/actuation Mist 2 puff INHALATION DAILY hydroxyzine HCl 25 mg Tablet 25 mg PO BID PRN (Reason: Anxiety) mupirocin 2 % Ointment 1 appl TOPICAL BID atorvastatin 20 mg Tablet 20 mg PO BEDTIME aspirin 81 mg Tablet 81 mg PO DAILY sertraline 100 mg Tablet 200 mg PO DAILY albuterol sulfate 90 mcg/actuation Aero Powdr Breath Act W/Sensor 1 inh INHALATION TID PRN (Reason: Shortness Of Breath Or Wheezing) Discharge Orders: Discharge Order (Routine); Ordered 02/16/25 Ordered By: Maximiliano Riggins Diet: Advance to usual diet Activity on Discharge: As tolerated Stand Alone Forms: Patient Portal Discharge page Print Language: Macedonian Activity Restrictions/Additional Instructions: See discharge sheet Care Plan Goals: Carotid surveillance Health Concerns: Carotid disease Plan of Treatment: Ultrasound surveillance of carotid Assessment: Status post right carotid endarterectomy
--- NOTE | 2025-02-16 12:40 | MHC.CM.PN ---
Addendum entered by Vandana Acosta 02/16/25 14:26: [facility] fax number: [phone] - message sent to Dr. Riggins with info via [employer] Original Note: Pt will d/c to home today with family support. No DME or services needed. Daughter to transport pt to home. CM to follow
== END 2025-02-16 12:55 | disposition home or self-care (01) | DRG 39 ==
LOC: HO.SSSA 10:48 → HO.ICU 11:00
PROVIDERS: Nurse Practitioner; Admitting Provider Surgery Vascular Surgery; Visit Provider Surgery Vascular Surgery
PROC: 03CH0ZZ Extirpation of Matter from Right Common Carotid Artery, Open Approach (ICD-10-PCS; CPT 35301; principal; 2025-02-15 07:30)
DX: I65.21 Occlusion and stenosis of right carotid artery (principal); I10 Essential (primary) hypertension; J44.9 Chronic obstructive pulmonary disease, unspecified; G47.33 Obstructive sleep apnea (adult) (pediatric); Z79.82 Long term (current) use of aspirin; Z79.899 Other long term (current) drug therapy
CPT/HCPCS: 36415; 80048; 80307; 85025; 85027; 85610; 85730; 86850; 86870; 86900; 86901; 86920; 86922; 88304; 88311; 94640; 94660; A4649; C1768; C9250; J0360; J0690; J1100; J1171; J1644; J2003; J2250; J2270; J2405; J2704; J2795; J3010; J7120

== ENCOUNTER → 2025-02-15 10:47 | Outpatient (BNV) | payer OTHER, SELFPAY | PROVIDERS: Admitting Provider Surgery Vascular Surgery; Visit Provider Internal Medicine Critical Care Medicine | DX: I10 Essential (primary) hypertension (principal); I65.23 Occlusion and stenosis of bilateral carotid arteries; Z48.812 Encounter for surgical aftercare following surgery on the circulatory system | CPT/HCPCS: 99223; 99499 ==

== ENCOUNTER 2025-02-25 14:20 | Outpatient (AMB) | payer OTHER, SELFPAY ==
--- NOTE | 2025-02-25 14:38 | A.OFFVIS_ITS ---
Intake Visit Reasons: [facility] request for [facility] incision opening Intake Note: Pt add on s/p Right CEA 02/15/25, pt states its been bleeding since discharge. [facility] called to notify. pt states area is numb Apartment Assistant Manager Required: No Accompanied by: Self / Same As Patient Allergies No Known Allergies Allergy (Verified 02/25/25 14:40) HPI HPI [facility] request for CEA incision opening: Details: 65-year-old gentleman presents for follow-up regarding his carotids. He had persistent bleeding for the last 10 days from his neck. It has a slow ooze which has been saturating 1 dressing daily. He now presents for follow-up. [facility] Medical History STACIE on CPAP PTSD (post-traumatic stress disorder) TBI (traumatic brain injury) (~1987) HLD (hyperlipidemia) Stroke (~2021) COPD (chronic obstructive pulmonary disease) Hypertension Surgical History Hx of umbilical hernia repair Hx of tonsillectomy Hx of tracheostomy (~1963) Family History Mother No problems noted. Father No problems noted. 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 Housing: Unknown / Unable to assess Are you a primary nurse wound care to a significant other at home: No Do you presently have visiting nurse or other home services: No 75 years or older and lives alone: No Unable to assess alcohol history related to: Refusing to respond Alcohol intake: never Patient Tobacco Use Status: Tobacco use Unknown Tobacco use type: Cigarette Cigarette Packs Per Day: 1 Cigarettes Per Day: 20.0 Review of Systems Const All systems reviewed & are unremarkable except as noted in HPI and below Reports no additional complaints ENT Reports Normal hearing present Card Denies chest pain, Denies chest pain at rest, Denies chest pain with activity and Denies pedal edema Resp Denies cough GI Denies abdominal pain Musc Denies abnormal gait, Denies muscle cramps and Denies radiating pain into limb Skin/Breast Denies skin ulcer and Denies wounds Neuro Reports Normal hearing present and Denies abnormal gait Psych Reports no additional complaints Physical Exam Const General: cooperative, healthy appearing and comfortable Orientation/consciousness: oriented to person, oriented to place and oriented to time HEENT Head: Yes normal to inspection Neck Neck: Yes normal visual inspection Carotids: no bruits Chest Chest palpation & inspection: normal inspection of the chest Resp Effort & Inspection: normal respiratory effort and able to speak in complete sentences Auscultation: clear to auscultation bilaterally, no crackles, no rales, no rhonchi and no wheezes Cardio Rate: regular rate Rhythm: regular rhythm Heart sounds: S1 normal heart sound present and S2 normal heart sound present Bruits: no carotid bruits Peripheral pulses: Peripheral pulses 2+ throughout GI Inspection: Yes normal to inspection Skin Other: Right neck superficial bleed - underlying hematoma small Wounds: no wounds Hair: normal Neuro General: oriented to person, oriented to place and oriented to time Cranial nerves: Yes CN's II-XII intact bilaterally and Yes Normal hearing present Cognition (Neuro): normal cognition Motor exam (neuro): 5/5 motor strength present throughout Extrem Other: venous exam: No significant superficial varicosities or spider telangiectasias, minimal edema General: No clubbing, No cyanosis and No edema Psych Appearance: grossly normal Mental Status: mental status grossly normal Speech and movement: Normal speech and movement present Assessment & Plan Assessment & Plan (1) Bilateral carotid artery stenosis: Code(s): I65.23 - Occlusion and stenosis of bilateral carotid arteries Category: Medical Plan: In short patient is status post carotid endarterectomy he has persistent bleeding from the neck incision it has been a slow bleed leads me to believe it is more superficial. We did place 3 superficial stitches. He has been requested to stop his aspirin. We will have a quick short interval follow-up this coming Saturday. This is to ensure that this stops. Thank you for allowing us to assist in his care. If there are any questions or concerns please do not hesitate to contact us. Coding Level of Care Code Est Pt Level 4 (68699) Diagnoses Bilateral carotid artery stenosis I65.23
== END 2025-02-25 15:01 | disposition home or self-care (01) ==
LOC: HO.HVS 14:21
PROVIDERS: Visit Provider Surgery Vascular Surgery
DX: I65.23 Occlusion and stenosis of bilateral carotid arteries (principal)
CPT/HCPCS: 99024

== ENCOUNTER → 2025-02-25 14:20 | Outpatient (BNVA) | payer OTHER, SELFPAY | PROVIDERS: Visit Provider Surgery Vascular Surgery | DX: I65.23 Occlusion and stenosis of bilateral carotid arteries (principal) | CPT/HCPCS: 99212 ==

== ENCOUNTER 2025-02-26 12:58 | Outpatient (AMB) | payer OTHER, SELFPAY ==
--- NOTE | 2025-02-26 13:58 | A.OFFVIS_ITS ---
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 He actually presented yesterday with bleeding through the incision. It is quite unusual that he is about 10 11 days out and continues to have a persistent ooze through the incision. He was concerned about it and presents for follow-up. [facility] Medical History STACIE on CPAP PTSD (post-traumatic stress disorder) TBI (traumatic brain injury) (~1987) HLD (hyperlipidemia) Stroke (~2021) COPD (chronic obstructive pulmonary disease) Hypertension Surgical History Hx of umbilical hernia repair Hx of tonsillectomy Hx of tracheostomy (~1963) Family History Mother No problems noted. Father No problems noted. 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 Housing: Unknown / Unable to assess Are you a primary hiv/aids care nurse to a significant other at home: No Do you presently have visiting nurse or other home services: No 75 years or older and lives alone: No Unable to assess alcohol history related to: Refusing to respond Alcohol intake: never Patient Tobacco Use Status: Tobacco use Unknown Tobacco use type: Cigarette Cigarette Packs Per Day: 1 Cigarettes Per Day: 20.0 Review of Systems Const All systems reviewed & are unremarkable except as noted in HPI and below Reports no additional complaints ENT Reports Normal hearing present Card Denies chest pain, Denies chest pain at rest, Denies chest pain with activity and Denies pedal edema Resp Denies cough GI Denies abdominal pain Musc Denies abnormal gait, Denies muscle cramps and Denies radiating pain into limb Skin/Breast Denies skin ulcer and Denies wounds Neuro Reports Normal hearing present and Denies abnormal gait Psych Reports no additional complaints Physical Exam Const General: cooperative, healthy appearing and comfortable Orientation/consciousness: oriented to person, oriented to place and oriented to time HEENT Head: Yes normal to inspection Neck Neck: Yes normal visual inspection Carotids: no bruits Chest Chest palpation & inspection: normal inspection of the chest Resp Effort & Inspection: normal respiratory effort and able to speak in complete sentences Auscultation: clear to auscultation bilaterally, no crackles, no rales, no rhonchi and no wheezes Cardio Rate: regular rate Rhythm: regular rhythm Heart sounds: S1 normal heart sound present and S2 normal heart sound present Bruits: no carotid bruits Peripheral pulses: Peripheral pulses 2+ throughout GI Inspection: Yes normal to inspection Skin Other: Right neck hematoma non expanding additional suture placed. Wounds: no wounds Hair: normal Neuro General: oriented to person, oriented to place and oriented to time Cranial nerves: Yes CN's II-XII intact bilaterally and Yes Normal hearing presen t Cognition (Neuro): normal cognition Motor exam (neuro): 5/5 motor strength present throughout Extrem Other: venous exam: No significant superficial varicosities or spider telangiectasias, minimal edema General: No clubbing, No cyanosis and No edema Psych Appearance: grossly normal Mental Status: mental status grossly normal Speech and movement: Normal speech and movement present Assessment & Plan Assessment & Plan (1) Bilateral carotid artery stenosis: Code(s): I65.23 - Occlusion and stenosis of bilateral carotid arteries Category: Medical Plan: In short patient is status post right carotid endarterectomy appears to be doing relatively well. Concern here is that right neck hematoma and continued bleeding and oozing through the incision site. I do believe that most of this is old clot and serous drainage. Additional suture and Steri-Strips were placed. He is off his aspirin. I do hope that this slow persistent ooze will stop. We will have him follow-up on Saturday. He was instructed to call me should this persist or he have any issues. In addition he can return to the emergency room should there be any additional issues. Thank you for allowing us to assist in his care. If there are any questions or concerns please do not hesitate to contact me. Coding Level of Care Code Est Pt Level 4 (34499) Diagnoses Bilateral carotid artery stenosis I65.23
== END 2025-02-26 13:19 | disposition home or self-care (01) ==
LOC: HO.HVS 12:58
PROVIDERS: Visit Provider Surgery Vascular Surgery
DX: I65.23 Occlusion and stenosis of bilateral carotid arteries (principal)
CPT/HCPCS: 99024

== ENCOUNTER → 2025-02-26 12:58 | Outpatient (BNVA) | payer OTHER, SELFPAY | PROVIDERS: Visit Provider Surgery Vascular Surgery | DX: I65.23 Occlusion and stenosis of bilateral carotid arteries (principal) | CPT/HCPCS: 99212 ==

== ENCOUNTER 2025-03-02 12:47 | Outpatient (AMB) | payer OTHER, SELFPAY ==
--- NOTE | 2025-03-02 13:10 | MHC.OFFVIS ---
Intake Visit Reasons: follow up incision Intake Note: follow up incision check s/p Right CEA 02/15/25. Drainage has decreased but still has significant swelling. Accompanied by: Self / Same As Patient Allergies No Known Allergies Allergy (Verified 03/02/25 13:14) [facility] HPI follow up incision: Details: Patient is status post right carotid endarterectomy. He had seen us on Saturday for swelling and drainage and hematoma of the right neck. Reports that it is doing significantly better. Swelling has decreased in addition to drainage. He now presents for follow-up. [facility] Medical History STACIE on CPAP PTSD (post-traumatic stress disorder) TBI (traumatic brain injury) (~1987) HLD (hyperlipidemia) Stroke (~2021) COPD (chronic obstructive pulmonary disease) Hypertension Surgical History Hx of umbilical hernia repair Hx of tonsillectomy Hx of tracheostomy (~1963) Family History Mother No problems noted. Father No problems noted. 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 Housing: Unknown / Unable to assess Are you a primary customer care professional to a significant other at home: No Do you presently have visiting nurse or other home services: No 75 years or older and lives alone: No Alcohol intake: never Patient Tobacco Use Status: Tobacco use Unknown Tobacco use type: Cigarette Cigarette Packs Per Day: 1 Cigarettes Per Day: 20.0 Review of Systems Const All systems reviewed & are unremarkable except as noted in HPI and below Reports no additional complaints ENT Reports Normal hearing present Card Denies chest pain, Denies chest pain at rest, Denies chest pain with activity and Denies pedal edema Resp Denies cough GI Denies abdominal pain Musc Denies abnormal gait, Denies muscle cramps and Denies radiating pain into limb Skin/Breast Denies skin ulcer and Denies wounds Neuro Reports Normal hearing present and Denies abnormal gait Psych Reports no additional complaints Physical Exam Const General: cooperative, healthy appearing and comfortable Orientation/consciousness: oriented to person, oriented to place and oriented to time HEENT Head: Yes normal to inspection Neck Neck: Yes normal visual inspection Carotids: no bruits Chest Chest palpation & inspection: normal inspection of the chest Resp Effort & Inspection: normal respiratory effort and able to speak in complete sentences Auscultation: clear to auscultation bilaterally, no crackles, no rales, no rhonchi and no wheezes Cardio Rate: regular rate Rhythm: regular rhythm Heart sounds: S1 normal heart sound present and S2 normal heart sound present Bruits: no carotid bruits Peripheral pulses: Peripheral pulses 2+ throughout GI Inspection: Yes normal to inspection Skin Other: Right neck hematoma measures 3 x 7 cm. Wounds: no wounds Hair: normal Neuro General: oriented to person, oriented to place and oriented to time Cranial nerves: Yes CN's II-XII intact bilaterally and Yes Normal hearing present Cognition (Neuro): normal cognition Motor exam (neuro): 5/5 motor strength present throughout Extrem Other: venous exam: No significant superficial varicosities or spider telangiectasias, minimal edema General: No clubbing, No cyanosis and No edema Psych Appearance: grossly normal Mental Status: mental status grossly normal Speech and movement: Normal speech and movement present Assessment & Plan Assessment & Plan (1) Bilateral carotid artery stenosis: Code(s): I65.23 - Occlusion and stenosis of bilateral carotid arteries Category: Medical Plan: In short patient has postop carotid hematoma. Appears to be resolving nicely. We will plan for follow-up this . We did discuss routine conservative measures for him to stay off the aspirin limit his activity. Once again he will follow up with us in a proximally 2 days' time. Thank you for allowing us to assist in his care. If there are any questions or concerns please do not hesitate to contact us Coding Level of Care Code Est Pt Level 3 (90139) Diagnoses Bilateral carotid artery stenosis I65.23
== END 2025-03-02 13:32 | disposition home or self-care (01) ==
LOC: HO.HVS 12:48
PROVIDERS: Visit Provider Surgery Vascular Surgery
DX: I65.23 Occlusion and stenosis of bilateral carotid arteries (principal)
CPT/HCPCS: 99024

== ENCOUNTER 2025-03-04 12:15 | Outpatient (AMB) | payer OTHER, SELFPAY ==
--- NOTE | 2025-03-04 12:59 | MHC.OFFVIS ---
Intake Visit Reasons: incision check Intake Note: follow up Right CEA 02/15/25 incision check. 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 There was concern about his overall neck. Additional sutures had to be placed in the neck to obtain hemostasis. Now presents for routine follow-up REPLACED BY [facility] Medical History STACIE on CPAP PTSD (post-traumatic stress disorder) TBI (traumatic brain injury) (~1987) HLD (hyperlipidemia) Stroke (~2021) COPD (chronic obstructive pulmonary disease) Hypertension Surgical History Hx of umbilical hernia repair Hx of tonsillectomy Hx of tracheostomy (~1963) Family History Mother No problems noted. Father No problems noted. 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 Housing: Unknown / Unable to assess Are you a primary respiratory care technician to a significant other at home: No Do you presently have visiting nurse or other home services: No 75 years or older and lives alone: No Alcohol intake: never Patient Tobacco Use Status: Tobacco use Unknown Tobacco use type: Cigarette Cigarette Packs Per Day: 1 Cigarettes Per Day: 20.0 Review of Systems Const All systems reviewed & are unremarkable except as noted in HPI and below Reports no additional complaints ENT Reports Normal hearing present Card Denies chest pain, Denies chest pain at rest, Denies chest pain with activity and Denies pedal edema Resp Denies cough GI Denies abdominal pain Musc Denies abnormal gait, Denies muscle cramps and Denies radiating pain into limb Skin/Breast Denies skin ulcer and Denies wounds Neuro Reports Normal hearing present and Denies abnormal gait Psych Reports no additional complaints Physical Exam Const General: cooperative, healthy appearing and comfortable Orientation/consciousness: oriented to person, oriented to place and oriented to time HEENT Head: Yes normal to inspection Neck Neck: Yes normal visual inspection Carotids: no bruits Chest Chest palpation & inspection: normal inspection of the chest Resp Effort & Inspection: normal respiratory effort and able to speak in complete sentences Auscultation: clear to auscultation bilaterally, no crackles, no rales, no rhonchi and no wheezes Cardio Rate: regular rate Rhythm: regular rhythm Heart sounds: S1 normal heart sound present and S2 normal heart sound present Bruits: no carotid bruits Peripheral pulses: Peripheral pulses 2+ throughout GI Inspection: Yes normal to inspection Skin Other: Right neck hematoma measuring 1 x 6 cm Wounds: no wounds Hair: normal Neuro General: oriented to person, oriented to place and oriented to time Cranial nerves: Yes CN's II-XII intact bilaterally and Yes Normal hearing present Cognition (Neuro): normal cognition Motor exam (neuro): 5/5 motor strength present throughout Extrem Other: venous exam: No significant superficial varicosities or spider telangiectasias, minimal edema General: No clubbing, No cyanosis and No edema Psych Appearance: grossly normal Mental Status: mental status grossly normal Speech and movement: Normal speech and movement present Assessment & Plan Assessment & Plan (1) Bilateral carotid artery stenosis: Comment: 02/15/2025- right carotid endarterectomy Code(s): I65.23 - Occlusion and stenosis of bilateral carotid arteries Category: Medical Plan: Neck appears to be stable and resolving nicely. Follow-up in 1 week for suture removal. We will plan on surveillance protocol thereafter. Thank you for allowing us to assist in his care. We will reassess also for restarting aspirin. Coding Level of Care Code Est Pt Level 4 (94175) Complex EM visit Add On [id number] Diagnoses Bilateral carotid artery stenosis I65.23
== END 2025-03-04 14:08 | disposition home or self-care (01) ==
LOC: HO.HVS 12:16
PROVIDERS: Visit Provider Surgery Vascular Surgery
DX: I65.23 Occlusion and stenosis of bilateral carotid arteries (principal)
CPT/HCPCS: 99024

== ENCOUNTER → 2025-03-04 12:15 | Outpatient (BNVA) | payer OTHER, SELFPAY | PROVIDERS: Visit Provider Surgery Vascular Surgery | DX: Z98.890 Other specified postprocedural states (principal); I65.23 Occlusion and stenosis of bilateral carotid arteries | CPT/HCPCS: 99212 ==

== ENCOUNTER 2025-03-11 12:05 | Outpatient (AMB) | payer OTHER, SELFPAY ==
--- NOTE | 2025-03-11 12:51 | A.OFFVIS_ITS ---
Intake Visit Reasons: 1 week incision check Intake Note: 1 week incision check, no drainage. 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 He is status post right carotid endarterectomy with hematoma postprocedure. He appears to be doing significantly better. No other interval issues. Now for routine follow-up to ensure that the hematoma is resolving he does have several sutures intact. REPLACED BY [facility] Medical History STACIE on CPAP PTSD (post-traumatic stress disorder) TBI (traumatic brain injury) (~1987) HLD (hyperlipidemia) Stroke (~2021) COPD (chronic obstructive pulmonary disease) Hypertension Surgical History Hx of umbilical hernia repair Hx of tonsillectomy Hx of tracheostomy (~1963) Family History Mother No problems noted. Father No problems noted. 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 Housing: Unknown / Unable to assess Are you a primary wound care center consultant to a significant other at home: No Do you presently have visiting nurse or other home services: No 75 years or older and lives alone: No Alcohol intake: never Patient Tobacco Use Status: Tobacco use Unknown Tobacco use type: Cigarette Cigarette Packs Per Day: 1 Cigarettes Per Day: 20.0 Review of Systems Const All systems reviewed & are unremarkable except as noted in HPI and below Reports no additional complaints ENT Reports Normal hearing present Card Denies chest pain, Denies chest pain at rest, Denies chest pain with activity and Denies pedal edema Resp Denies cough GI Denies abdominal pain Musc Denies abnormal gait, Denies muscle cramps and Denies radiating pain into limb Skin/Breast Denies skin ulcer and Denies wounds Neuro Reports Normal hearing present and Denies abnormal gait Psych Reports no additional complaints Physical Exam Const General: cooperative, healthy appearing and comfortable Orientation/consciousness: oriented to person, oriented to place and oriented to time HEENT Head: Yes normal to inspection Neck Neck: Yes normal visual inspection Carotids: no bruits Chest Chest palpation & inspection: normal inspection of the chest Resp Effort & Inspection: normal respiratory effort and able to speak in complete sentences Auscultation: clear to auscultation bilaterally, no crackles, no rales, no rhonchi and no wheezes Cardio Rate: regular rate Rhythm: regular rhythm Heart sounds: S1 normal heart sound present and S2 normal heart sound present Bruits: no carotid bruits Peripheral pulses: Peripheral pulses 2+ throughout GI Inspection: Yes normal to inspection Skin Other: Right neck incision healing well. Hematoma resolved Wounds: no wounds Hair: normal Neuro General: oriented to person, oriented to place and oriented to time Cranial nerves: Yes CN's II-XII intact bilaterally and Yes Normal hearing present Cognition (Neuro): normal cognition Motor exam (neuro): 5/5 motor strength present throughout Extrem Other: venous exam: No significant superficial varicosities or spider telangiectasias, minimal edema General: No clubbing, No cyanosis and No edema Psych Appearance: grossly normal Mental Status: mental status grossly normal Speech and movement: Normal speech and movement present Assessment & Plan Assessment & Plan (1) Bilateral carotid artery stenosis: Comment: 02/15/2025- right carotid endarterectomy Code(s): I65.23 - Occlusion and stenosis of bilateral carotid arteries Category: Medical Plan: In short patient is doing extremely well status post right carotid endarterectomy. His hematoma has resolved sutures are removed. He can return to work full activity. He will follow up with us in approximately 3 months time for routine carotid surveillance. Thank you for allowing us to assist in his care. Orders: Orders US carotid duplex BI Today I65.23 - Occlusion and stenosis of bilateral carotid arteries Coding Level of Care Code Est Pt Level 4 (16383) Diagnoses Bilateral carotid artery stenosis I65.23
== END 2025-03-11 13:05 | disposition home or self-care (01) ==
LOC: HO.HVS 12:05
PROVIDERS: Referring Provider Surgery Vascular Surgery; Visit Provider Surgery Vascular Surgery
DX: I65.23 Occlusion and stenosis of bilateral carotid arteries (principal)
CPT/HCPCS: 99024

== ENCOUNTER → 2025-03-11 12:05 | Outpatient (BNVA) | payer OTHER, SELFPAY | PROVIDERS: Visit Provider Surgery Vascular Surgery | DX: Z48.812 Encounter for surgical aftercare following surgery on the circulatory system (principal); I65.23 Occlusion and stenosis of bilateral carotid arteries; Z98.890 Other specified postprocedural states | CPT/HCPCS: 99212 ==

== ENCOUNTER 2025-03-28 00:11 | Emergency (ER) | payer OTHER, SELFPAY ==
[2025-03-28] VITALS (9 sets, daily range): BP systolic 103–144; BP diastolic 52–84; PULSE 60–84; RESP 14–19; TEMP 36.6–37.1; O2SAT 84–95; BMI 31.8
--- NOTE | 2025-03-28 01:01 | PC.NURSE ---
Pt presents via EMS reporting SI/HI. Pt went to the police station asking to be placed inside a cell as he does not feel safe, SI/HI. On arrival pt is cooperative, hyperverbal, and somewhat agitated but following directions. States feeling angry with how the world is and feeling like his is taking advantage of him. can coverer completed by security and this write. Pt changed into hospital attire. Belongings placed in the phil port. 1:1 Sitter at bedside for safety. Monitoring is ongoing.
[2025-03-28 01:22] LABS: MANUAL DIFF FLAG NO
[2025-03-28 01:23] LABS: Hematocrit 40.7 % (42.0-52.0); Hemoglobin 13.4 g/dl (14.0-18.0); Imm Gran Abs Auto 0.04 X10*3/uL (0.00-0.03); Imm Gran Pct Auto 0.3 % (0.0-0.4); Lymphocytes Absolute Auto 2.2 X10*3/uL (1.2-4.9); Mean Corpuscular HGB Conc 32.9 g/dl (31.0-36.0); Mean Corpuscular Hemoglobin 29.3 pg (27.0-33.0); Mean Corpuscular Volume 89.1 fL (80.0-98.0); NRBC Abs Auto 0.000 X10*3/uL (0.0-0.012); NRBC Pct Auto 0.0 /100WBC (0.0-0.2); Platelet Count 166 X10*3/uL (160-400); Red Blood Count 4.57 X10*6/uL (4.60-5.80); White Blood Count 12.6 X10*3/uL (4.8-10.8)
[2025-03-28 01:41] LABS: Alanine Aminotransferase 24 U/L (0-40); Albumin Level 4.4 g/dL (3.5-5.0); Anion Gap 15 (12-20); Aspartate Amino Transferase 74 U/L (5-37); Blood Urea Nitrogen 22 mg/dL (9-16); Calcium 9.7 mg/dL (8.4-10.2); Carbon Dioxide 27 mmol/L (22-29); Chloride 103 mmol/L (96-108); Creatinine Clr Calc Pharmacy 52.7; Estimated Glomerular Filt Rate 43; Potassium 4.4 mmol/L (3.3-5.1); Sodium 141 mmol/L (135-145); Total Protein 7.6 g/dL (6.5-8.0)
[2025-03-28 02:20] LABS: Alkaline Phosphatase 62 U/L (39-117)
[2025-03-28 02:32] LABS: Acetaminophen LAB < 3 mcg/mL (<30); Salicylate < 5.0 mg/dL (15-30)
[2025-03-28 04:25] LABS: Appearance Urine Clear; Glucose Urine UA Negative (Negative); PH 5.5 (5.0-9.0); Specific Gravity - Urine 1.025 (1.005-1.025); UMIC TRIGGER UACC YES
[2025-03-28 04:36] LABS: Cannabinoid Screen Urine Not Detected (Not Detect)
[2025-03-28 04:40] LABS: UACC Culture Trigger YES
--- NOTE | 2025-03-28 07:31 | PC.NURSE ---
Care of Pt assumed at change of shift. Pt is currently resting quietly with eye closed and lights dimmed. NAD noted. Will continue to monitor.
--- NOTE | 2025-03-28 09:01 | ED_ITS ---
HPI - Psych General Chief Complaint: Psychiatric Symptoms Stated Complaint: SI Time Seen by Provider: 03/28/25 00:49 Source: patient and EMS Mode of arrival: EMS Limitations: no limitations History of Present Illness ED Provider: Dr. Martha Sanabria HPI Narrative: 65-year-old male with extensive psychiatric history including PTSD, major depressive disorder, polysubstance use disorder as well as hypertension and carotid artery stenosis presenting with suicidal ideation, homicidal ideations and paranoid delusions. Patient states that he ?worked 1 day last week but got paid for at least 2 weeks' worth of work ?. Feels that because of this, he feels ?someone is stealing from me?. He is fixated on 700 dollars that he got as a check from the [place] work assistance program. States that because he received this check, ?somebody must be stealing from me?. He feels suicidal because ?I just can not stand this anymore?. He also feels homicidal towards the people at her ?stealing from him? however he has no plan for suicide and has no specific plan for how he would harm others. He admits to using substances but will not admit which ones. Denies alcohol use. Denies physical complaints. Related Data Home Medications ?Medication ?Instructions ?Recorded ?Confirmed albuterol sulfate 90 mcg/actuation 1 inh inhalation TI D PRN Shortness 01/06/25 03/28/25 breath activated powder Of Breath Or Wheezing inhaler,sensor sertraline 100 mg tablet 200 mg PO DAILY 01/06/25 tiotropium 2.5 mcg-olodaterol 2.5 2 puff inhalation DA INOCENCIA 01/06/25 03/28/25 mcg/actuation mist for inhalation (Stiolto Respimat) amlodipine 10 mg tablet 10 mg PO DAILY 02/15/2503/10 melatonin 3 mg tablet 6 mg PO BEDTIME PRN Insomnia 02/15/25 03/28/25 aripiprazole 10 mg tablet (Abilify) 5 mg PO BEDTIME 03/28/25 aspirin 81 mg tablet,delayed 81 mg PO DAILY 03/28/25 1 release atorvastatin 40 mg tablet 40 mg PO BEDTIME 03/28/25 cholecalciferol (vitamin D3) 50 50 mcg PO DAILY 03/28/25 mcg (2,000 unit) tablet emollient combination no.71 1 ea topical BID PRN Dry S kin 03/28/25 03/28/25 (Lubriderm Advanced Therapy lotion) hydroxyzine pamoate 25 mg capsule 25 mg PO BID PRN Anx iety 03/28/25 03/28/25 lisinopril 10 1 tab PO DAILY 03/28/2503/10 mg-hydrochlorothiazide 12.5 mg tablet nicotine (polacrilex) 4 mg gum 4 mg buccal Q4H PRN Kelvin otine 03/28/25 03/28/25 Cravings nicotine 21 mg/24 hr daily 1 patch transdermal DAILY 1 03/28/25 transdermal patch Allergies Allergy/AdvReac Type Severity Reaction Status Date / Time No Known Allergies Allergy Verified 03/28/25 00:48 Review of Systems 2 Review of Systems: As per HPI, full review of systems performed and negative but for the above mentioned pertinent positives and negatives. [facility] Past Medical History Medical History STACIE on CPAP PTSD (post-traumatic stress disorder) TBI (traumatic brain injury) (~1987) HLD (hyperlipidemia) Stroke (~2021) COPD (chronic obstructive pulmonary disease) Hypertension Surgical History Hx of umbilical hernia repair Hx of tonsillectomy Hx of tracheostomy (~1963) Family History Family History Mother No problems noted. Father No problems noted. Social History 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 Housing: Unknown / Unable to assess Are you a primary child care centre director to a significant other at home: No Do you presently have visiting nurse or other home services: No 75 years or older and lives alone: No Alcohol intake: never Patient Tobacco Use Status: Tobacco use Unknown Tobacco use type: Cigarette Cigarette Packs Per Day: 1 Cigarettes Per Day: 20.0 Physical Exam 2 Exam: Exam: GENERAL: Unkempt, no acute distress. SKIN: Normal skin color for ethnicity, warm, dry, no rashes noted. HEENT: Normocephalic, atraumatic, no stridor, posterior oropharynx nonerythematous, dentition intact, EOMI. NECK: Soft, supple, full ROM, midline structures nontender, no step-offs, no deformities, no lymphadenopathy. CHEST: Heart regular rate and rhythm, no murmurs, symmetric chest rise and fall. PULMONARY: Clear to auscultation bilaterally, no labored breathing, no wheezes/rhales/ rhonchi. ABDOMINAL: Soft, nondistended, nontender, positive bowel sounds in all quadrants. : Deferred. MUSCULOSKELETAL: Normal tone, full range of motion, no deformities, no peripheral edema. NEURO: Alert and oriented x3, CN II through XII intact, equal strength and sensation bilateral upper and lower extremities, no focal neurologic deficits. PSYCHIATRIC: Flat affect, poor eye contact, withdrawn, suicidal, homicidal, paranoid delusions Vital Signs: Vital Signs: Last Vital Signs Temp 98.6 F 03/29/25 18:53 Pulse 58 03/29/25 18:53 Resp 16 03/29/25 18:53 BP 109/62 03/29/25 18:53 Pulse Ox 94 03/29/25 18:53 O2 Del Method Room Air 03/29/25 18:53 O2 Flow Rate 2 03/29/25 07:50 BMI result Body Mass Index 31.8 Course Reevaluation(s) Reevaluation #1: 2:45 PM 03/28/2025 (Dr. Quinn Blue): Time: 14:46 Date: 03/28/25 Provider: Quinn Blue, DO Patient in physician observation for psychiatric evaluation.? No acute events reported overnight. No current complaints. VS stable.? Patient is in bed search status. Time: 08:15 Date: 03/29/25 Provider: Jen Martinez, DO Patient in physician observation for psychiatric evaluation.? No acute events reported overnight. No current complaints. VS stable.? Patient is in bed search status, will repeat BMP this AM. Will continue to monitor. Reevaluation #2: 03/29/25 1800 phys obs ended transfer to psychiatric facility [facility] Medications Administered Discontinued Medications Generic Name Dose Route Start Last Admin Trade Name Freq PRN Reason Stop Dose Admin Amlodipine Besylate 10 mg 03/29/25 09:00 03/29/25 07:52 Amlodipine Besylate 10 Mg Tablet PO 10 mg DAILY JAVIER Administration Protocol Aspirin 81 mg 03/29/25 09:00 03/29/25 07:52 Aspirin Enteric Coated 81 Mg Tablet.Dr PO 81 mg DAILY JAVIER Administration Hydrochlorothiazide 12.5 mg 03/29/25 09:00 03/29/25 07:53 Hydrochlorothiazide 12.5 Mg Tablet PO 12.5 mg DAILY JAVIER Administration Lisinopril 10 mg 03/29/25 09:00 03/29/25 07:52 Lisinopril 10 Mg Tablet PO 10 mg DAILY JAVIER Administration Nicotine 21 mg 03/29/25 09:00 03/29/25 07:52 Nicotine 21 Mg Patch.[id number] TRANSDERMA Not Given DAILY JAVIER Sertraline HCl 200 mg 03/29/25 09:00 03/29/25 07:51 Sertraline Hcl 100 Mg Tablet PO 200 mg DAILY JAVIER Administration Vitamin D 50 mcg 03/29/25 09:00 03/29/25 07:53 Cholecalciferol (Vitamin D3) 25 Mcg Tablet PO 50 mcg DAILY JAVIER Administration Medical Decision Making Medical Decision Making MDM Narrative: Patient presents with psychologic complaints. Differential diagnosis includes suicidal ideations, homicidal ideations, depression, anxiety, mood disorder, decompensated mental illnesses such as schizophrenia or bipolar disorder, medication noncompliance, among many others. Medical clearance protocol was initiated. Patient with paranoid delusions, suicidality and homicidality. [facility] Potential for cocaine induced psychosis but I suspect there is some underlying schizoaffective disorder or decompensated bipolar depression. Awaiting care team evaluation and final disposition. Differential Diagnosis Differential Diagnoses: The differential diagnosis associated with the presentation includes (As above) Admission/Observation Consideration of admission/observation: Escalation of care including admission/observation considered Consult Healthcare Provider Management of the patient was discussed with: Behavioral Health Provider Lab Data [facility] Lab Attestation statement: I reviewed the patient's lab results. Slight dehydration with a elevated creatinine from baseline. Slight white blood cell count elevation, no evidence of infection. 03/28/25 01:17 03/29/25 08:26 Labs: Lab Results 03/28/25 03/28/25 03/29/25 Range/Units 01:17 04:19 08:26 WBC 12.6 H (4.8-10.8) X10*3/uL RBC 4.57 L (4.60-5.80) X10*6/uL Hgb 13.4 L (14.0-18.0) g/dl Hct 40.7 L (42.0-52.0) % MCV 89.1 (80.0-98.0) fL MCH 29.3 (27.0-33.0) pg MCHC 32.9 (31.0-36.0) g/dl RDW 16.0 (11.0-16.0) % Plt Count 166 (160-400) X10*3/uL MPV 11.6 (9.4-12.4) fL Immature Gran % (Auto) 0.3 (0.0-0.4) % Neut % (Auto) 73.5 H (45-73) % Lymph % (Auto) 17.6 L (20-40) % [place] % (Auto) 8.1 (2-11) % Eos % (Auto) 0.1 (0-4) % Baso % (Auto) 0.4 (0-2) % Lymph # (Auto) 2.2 (1.2-4.9) X10*3/uL [place] # (Auto) 1.0 (0.1-1.2) X10*3/uL Eos # (Auto) 0.0 (0.0-0.4) X10*3/uL Baso # (Auto) 0.1 (0.0-0.2) X10*3/uL Abs Immat Gran (auto) 0.04 H (0.00-0.03) X10*3/uL Absolute Neuts (auto) 9.3 H (2.0-8.3) x10*3/uL Absolute Nucleated RBC 0.000 (0.0-0.012) X10*3/uL Nucleated RBC % (auto) 0.0 (0.0-0.2) /100WBC PT (10.9-12.4) SEC INR (0.9-1.1) Sodium 141 140 (135-145) mmol/L Potassium 4.4 4.0 (3.3-5.1) mmol/L Chloride 103 103 (96-108) mmol/L Carbon Dioxide 27 32 H (22-29) mmol/L Anion Gap 15 9 L (12-20) BUN 22 H 30 H (9-16) mg/dL Creatinine 1.63 H 1.26 (0.5-1.4) mg/dL Estim Creat Clear Calc 52.7 68.2 Estimated GFR 43 58 Random Glucose 81 119 H (60-115) mg/dL Calcium 9.7 D 9.2 (8.4-10.2) mg/dL Total Bilirubin 1.1 H (0.0-1.0) mg/dL AST 74 H (5-37) U/L ALT 24 (0-40) U/L Alkaline Phosphatase 62 (39-117) U/L Total Protein 7.6 (6.5-8.0) g/dL Albumin 4.4 (3.5-5.0) g/dL TSH 0.61 (0.32-4.0) uIU/mL Urine Color Dark Yellow Urine Appearance Clear Urine pH 5.5 (5.0-9.0) Ur Specific [place] 1.025 (1.005-1.025) Urine Protein 100 (2+) H (Neg-Trace) mg/dL Urine Glucose (UA) Negative (Negative) mg/dL Urine Ketones 15 (Negative) mg/dL Urine Blood Negative (Negative) Urine Nitrite Negative (Negative) Ur Leukocyte Esterase Trace H (Negative) Urine RBC 0-2 (0-2) /HPF Urine WBC 6-10 H (0-5) /HPF Ur Squamous Epith Cells 0-2 (0-2) /HPF Urine Bacteria None Seen (None Seen) Hyaline Casts >20 (0-2) /LPF Granular Casts Present Salicylates < 5.0 L (15-30) mg/dL Urine Opiates Screen Not Detected (Not Detect) Ur Buprenorphine Scrn Not Detected (Not Detect) ng/mL Ur Oxycodone Screen Not Detected (Not Detect) ng/mL Urine Methadone Screen Not Detected (Not Detect) ng/mL Urine Fentanyl Screen POSITIVE H (Not Detect) Acetaminophen < 3 (<30) mcg/mL Ur Barbiturates Screen Not Detected (Not Detect) Ur Phencyclidine Scrn Not Detected (Not Detect) Ur Amphetamines Screen Not Detected (Not Detect) U Benzodiazepines Scrn Not Detected (Not Detect) Urine Cocaine Screen POSITIVE H (Not Detect) U Marijuana (THC) Screen Not Detected (Not Detect) Ethyl Alcohol < 10 mg/dL COVID-19 ([facility]) (Negative) COVID-19 Clin Com 03/29/25 03/29/25 Range/Units 17:44 17:47 WBC (4.8-10.8) X10*3/uL RBC (4.60-5.80) X10*6/uL Hgb (14.0-18.0) g/dl Hct (42.0-52.0) % MCV (80.0-98.0) fL MCH (27.0-33.0) pg MCHC (31.0-36.0) g/dl RDW (11.0-16.0) % Plt Count (160-400) X10*3/uL MPV (9.4-12.4) fL Immature Gran % (Auto) (0.0-0.4) % Neut % (Auto) (45-73) % Lymph % (Auto) (20-40) % [place] % (Auto) (2-11) % Eos % (Auto) (0-4) % Baso % (Auto) (0-2) % Lymph # (Auto) (1.2-4.9) X10*3/uL [place] # (Auto) (0.1-1.2) X10*3/uL Eos # (Auto) (0.0-0.4) X10*3/uL Baso # (Auto) (0.0-0.2) X10*3/uL Abs Immat Gran (auto) (0.00-0.03) X10*3/uL Absolute Neuts (auto) (2.0-8.3) x10*3/uL Absolute Nucleated RBC (0.0-0.012) X10*3/uL Nucleated RBC % (auto) (0.0-0.2) /100WBC PT 11.3 (10.9-12.4) SEC INR 1.0 (0.9-1.1) Sodium (135-145) mmol/L Potassium (3.3-5.1) mmol/L Chloride (96-108) mmol/L Carbon Dioxide (22-29) mmol/L Anion Gap (12-20) BUN (9-16) mg/dL Creatinine (0.5-1.4) mg/dL Estim Creat Clear Calc Estimated GFR Random Glucose (60-115) mg/dL Calcium (8.4-10.2) mg/dL Total Bilirubin (0.0-1.0) mg/dL AST (5-37) U/L ALT (0-40) U/L Alkaline Phosphatase (39-117) U/L Total Protein (6.5-8.0) g/dL Albumin (3.5-5.0) g/dL TSH (0.32-4.0) uIU/mL Urine Color Urine Appearance Urine pH (5.0-9.0) Ur Specific [place] (1.005-1.025) Urine Protein (Neg-Trace) mg/dL Urine Glucose (UA) (Negative) mg/dL Urine Ketones (Negative) mg/dL Urine Blood (Negative) Urine Nitrite (Negative) Ur Leukocyte Esterase (Negative) Urine RBC (0-2) /HPF Urine WBC (0-5) /HPF Ur Squamous Epith Cells (0-2) /HPF Urine Bacteria (None Seen) Hyaline Casts (0-2) /LPF Granular Casts Salicylates (15-30) mg/dL Urine Opiates Screen (Not Detect) Ur Buprenorphine Scrn (Not Detect) ng/mL Ur Oxycodone Screen (Not Detect) ng/mL Urine Methadone Screen (Not Detect) ng/mL Urine Fentanyl Screen (Not Detect) Acetaminophen (<30) mcg/mL Ur Barbiturates Screen (Not Detect) Ur Phencyclidine Scrn (Not Detect) Ur Amphetamines Screen (Not Detect) U Benzodiazepines Scrn (Not Detect) Urine Cocaine Screen (Not Detect) U Marijuana (THC) Screen (Not Detect) Ethyl Alcohol mg/dL COVID-19 ([facility]) Negative (Negative) COVID-19 Clin Com See Note Independent Historian Clinical information obtained from an independent historian. History obtained from or confirmed by: EMS External Record Review External record reviewed: Inpatient record Chronic Conditions Patient?s care impacted by: Hypertension and Other (ASCVD) Social Determinants Patient?s care significantly limited by Social Determinants of Health including: Problems related to primary support group and Other Social Determinant of Health Discharge Plan Discharge Clinical Impression: Acute psychosis, Paranoid delusion, Suicidal ideation, Homicidal ideation Patient Disposition: Xfer Psychiatric Hosp Prescriptions: No Action melatonin 3 mg Tablet 6 mg PO BEDTIME PRN (Reason: Insomnia) amlodipine 10 mg Tablet 10 mg PO DAILY Stiolto Respimat 2.5-2.5 mcg/actuation Mist 2 puff INHALATION DAILY sertraline 100 mg Tablet 200 mg PO DAILY albuterol sulfate 90 mcg/actuation Aero Powdr Breath Act W/Sensor 1 inh INHALATION TID PRN (Reason: Shortness Of Breath Or Wheezing) atorvastatin 40 mg Tablet 40 mg PO BEDTIME aspirin 81 mg Tablet,Delayed Release (Dr/Ec) 81 mg PO DAILY nicotine (polacrilex) 4 mg Gum 4 mg BUCCAL Q4H PRN (Reason: Nicotine Cravings) nicotine 21 mg/24 hr Patch 24 Hour 1 patch TRANSDERMAL DAILY lisinopril-hydrochlorothiazide 10-12.5 mg Tablet 1 tab PO DAILY hydroxyzine pamoate 25 mg Capsule 25 mg PO BID PRN (Reason: Anxiety) aripiprazole [Abilify] 10 mg Tablet 5 mg PO BEDTIME Lubriderm Advanced Therapy Lotion 1 ea TOPICAL BID PRN (Reason: Dry Skin) cholecalciferol (vitamin D3) 50 mcg (2,000 unit) Tablet 50 mcg PO DAILY Interventions: [place]-Suicide Risk Severity Scale Last Done: 03/29/25 08:01 Acute Care Transfer Worksheet (ED) Last Done: 03/29/25 18:53 Discharge Date/Time: 03/29/25 18:53 Print Language: [place]
--- NOTE | 2025-03-28 09:59 | PC.NURSE ---
Pt satting 84% on RA, he was laying flat in bed, sound asleep, pt noted he normally wears CPAP at night with a small amount of O2, pt placed on 2L NC now satting in mid s, primary RN aware, resp alerted for CPAP use. Pt remains 1:1 sitter at this time
--- NOTE | 2025-03-28 17:08 | PHA.MEDREC ---
Pharmacy Consult ? Medication Reconciliation Pharmacy has completed the medication reconciliation.Obtained med list from PA
--- NOTE | 2025-03-28 19:42 | PC.NURSE ---
Report received and care assumed at 1900. Pt found to be resting comfortably in his stretcher on his left side, NC in place, eyes closed, respirations even and unlabored without distress noted. The pt was easily able to be wakened with this RN's presence and a soft hello. He offers no complaints, didn't speak much, and rolled over while RN attempted to complete pyschiatric assessment. RN will reassess/reapproach once more awake. Sitter remains nearby for continuous watch
--- NOTE | 2025-03-28 22:46 | PC.NURSE ---
RT outreached at approx 2220 via [facility] to request that the pt be set up on his bedside CPAP machine as he is now resting. RN applied sticker pulse ox to assist with continuous O2 monitoring and the pt is noted to be anywhere form 89-92% on his 2LPM via NC. As of now the pt continues to wait set up of CPAP machine however does not appear to be in any distress. Sitter remains present nearby for continued observation and will occasionally provide pt with verbal reminders/cues to help him replace his o2 tubing if/when it comes out of his nose
--- NOTE | 2025-03-29 | ECG_ITS ---
Test Reason : CHECK QTC Blood Pressure : */* mmHG Vent. Rate : 55 BPM Atrial Rate : 55 BPM P-R Int : 114 ms QRS Dur : 80 ms QT Int : 462 ms P-R-T Axes : 48 25 -23 degrees QTcB Int : 441 ms Sinus bradycardia Nonspecific T wave abnormality Abnormal ECG When compared with ECG of 05-Jan-2025 20:09, Nonspecific T wave abnormality, worse in Inferior leads Nonspecific T wave abnormality now evident in Lateral leads Referred By: Martha Sanabria Electronically Signed By: TIANNA WAYNE MD
[2025-03-29 00:30] VITALS: BP 114/66; PULSE 61; O2SAT 91
--- NOTE | 2025-03-29 02:54 | PC.NURSE ---
RN to bedside to assess low o2 alarm. Pt found to be resting comfortably in the stretcher with eyes closed, respirations even and unlabored with CPAP mask in place and machine in use. Pt noted to be 86-88% on his CPAP with O2 at 5LPM. RN attempted to adjust the CPAP mask as it sounded as though there was an air leak but this did not help. RN called RT to make them aware and was advised to increase his O2, RN increased the O2 to 8LPM as the 5-7 LPM would not sustain his O2 saturation above 90%. RT down at bedside now to assess. RT made RN aware that it was due to poor mask placement s/t the pt repositioning himself throughout the night while asleep. Mask adjusted and O2 lowered to 2LPM with good pleth and O2 sat noted to be 98%
[2025-03-29 07:50] VITALS: BP 117/81; PULSE 62; RESP 16; TEMP 36.3; O2SAT 91
[2025-03-29] MEDS: Aspirin Enteric Coated 81 MG TABLET.DR PO (07:52)
--- NOTE | 2025-03-29 08:06 | PC.NURSE ---
patient resting quietly in room, patient observer at the bedside for patient safety. patient continues to endorse increased depression, answering minimal questions. medicated per the MAR. remains sect 12 inpatient bedsearch
[2025-03-29 08:44] LABS: Anion Gap 9 (12-20); Blood Urea Nitrogen 30 mg/dL (9-16); Calcium 9.2 mg/dL (8.4-10.2); Carbon Dioxide 32 mmol/L (22-29); Chloride 103 mmol/L (96-108); Creatinine Clr Calc Pharmacy 68.2; Estimated Glomerular Filt Rate 58; Potassium 4.0 mmol/L (3.3-5.1); Sodium 140 mmol/L (135-145)
--- NOTE | 2025-03-29 10:42 | PC.NURSE ---
spoke with bed management - patient to be MA bedsearch, requesting additional labs and ekg.
[2025-03-29 11:21] LABS: Thyroid Stimulating Hormone 0.61 uIU/mL (0.32-4.0)
[2025-03-29 17:38] VITALS: BP 109/62; PULSE 58; RESP 16; TEMP 37; O2SAT 94
--- NOTE | 2025-03-29 17:44 | PC.NURSE ---
pt reported that he doesn't have his personal CPAP machine, and doesn't have anyone who would be able to bring it in.
[2025-03-29 17:58] LABS: INTERNATIONAL NORM RATIO 1.0 (0.9-1.1); Prothrombin Time 11.3 SEC (10.9-12.4)
[2025-03-29 18:06] LABS: COVID-19 Test Negative (Negative); IDNOW Serial# 6674DD1D
[2025-03-29 18:53] VITALS: BP 109/62; PULSE 58; RESP 16; TEMP 37; O2SAT 94
== END 2025-03-29 18:53 ==
PROVIDERS: Emergency Medicine; Emergency Provider Emergency Medicine; Referring Provider Emergency Medicine
DX: R45.851 Suicidal ideations (principal); F32.9 Major depressive disorder, single episode, unspecified; E86.0 Dehydration; F60.0 Paranoid personality disorder; F22 Delusional disorders; Z87.820 Personal history of traumatic brain injury
CPT/HCPCS: 36415; 80048; 80053; 80143; 80179; 80307; 81001; 84443; 85025; 85610; 87086; 87635; 93005; 99285; S9485

== ENCOUNTER → 2025-03-29 11:13 | Outpatient (BNV) | payer OTHER, SELFPAY | PROVIDERS: Emergency Provider Emergency Medicine; Visit Provider Internal Medicine Cardiovascular Disease | DX: R00.1 Bradycardia, unspecified (principal) | CPT/HCPCS: 93010 ==